=== PATIENT | male | born 1945 | race Caucasian/White ===

== ENCOUNTER 2023-11-01 21:18 | Outpatient (CLI) | payer MEDICARE, SELFPAY | END 2023-11-01 21:19 | disposition home or self-care (01) | LOC: AMB 11-02 10:13 | PROVIDERS: Visit Provider Family Medicine | DX: R41.82 Altered mental status, unspecified (principal) | CPT/HCPCS: A0425; A0427 ==

== ENCOUNTER 2023-11-01 22:04 | Emergency (ER) | payer MEDICARE, SELFPAY ==
[2023-11-01] VITALS (17 sets, daily range): BP systolic 101–141; BP diastolic 50–72; PULSE 31–42; RESP 18; TEMP 36.7; O2SAT 96–100
--- NOTE | 2023-11-01 22:09 | ED_ITS ---
HPI - General Adult General Time Seen by Provider: 22:09 <Genesis Travis MD - Last Filed: 11/02/23 00:42> Date Seen: 11/01/23 <Genesis Travis MD - Last Filed: 11/02/23 00:42> Chief complaint: Unspecified Complaint, Adult <Genesis Travis MD - Last Filed: 11/02/23 00:42> Stated complaint: Low heart rate <Genesis Travis MD - Last Filed: 11/02/23 00:42> Time Seen by Provider: 11/01/23 22:09 <Genesis Travis MD - Last Filed: 11/02/23 00:42> Source: patient, EMS and RN notes reviewed <Genesis Travis MD - Last Filed: 11/02/23 00:42> Mode of arrival: EMS <Genesis Travis MD - Last Filed: 11/02/23 00:42> Limitations: no limitations <Genesis Travis MD - Last Filed: 11/02/23 00:42> History of Present Illness HPI narrative: This 78-year-old male was brought over from [facility], EMS was called due to possible speech issues. Staff was noting that speech is off, last time known well is unknown. EMS found a normal negative stroke assessment but that his heart rate was in the 30s, initial blood pressure was systolic 130s. In route to our facility which is a bit very brief transfer, he had 1 episode where his speech seems slurred. It cleared and has been normal since. Patient is aware that they called the ambulance for speech issues. He denies any chest pain, is not short of breath. He states he has been well. He does note when he was wheeling himself around in a wheelchair earlier today that he felt a little bit more tired. He is not feeling symptoms of this low heart rate but is just lying there. He notes no speech issues, no headache, no visual changes. He denies any incoordination or abnormal motor changes in his arms or legs. He is a patient of [facility]. He states he has had a bypass surgery for his heart at [facility] in 2000. We do not have records on him, we have not seen him before. Current medications are acetaminophen, Tums, 81 mg aspirin, eye lubricating drops, duloxetine, Flomax, lisinopril, lithium, methimazole, multivitamin, sublingual nitroglycerin p.r.n., along the Pean, MiraLax, propranolol 60 mg extended release daily, Protonix, senna, trazodone, Xarelto Patient is noted to be DNR DNI. <Genesis Travis MD - Last Filed: 11/02/23 00:42> Related Data Allergies/adverse reactions: Allergies Allergy/AdvReac Type Severity Reaction Status Date / Time Penicillins AdvReac Verified 11/01/23 22:31 Sulfa (Sulfonamide AdvReac Verified 11/01/23 22:31 Antibiotics) <Genesis Travis MD - Last Filed: 11/02/23 00:42> Review of Systems Status of ROS: Reports: 6 or more systems reviewed and unremarkable except as noted in History and below <Genesis Travis MD - Last Filed: 11/02/23 00:42> [facility] Surgical History: Surgical History (Updated 11/01/23 @ 22:58 by Jaja Hamilton RN) S/P triple vessel bypass ?Z95.1 - Presence of aortocoronary bypass graft (ICD-10) <Genesis Travis MD - Last Filed: 11/02/23 00:42> Social History: Social History How often do you have a drink containing alcohol: never AUDIT-C Alcohol total score: 0 Non-prescribed substance use: denies use <Genesis Travis MD - Last Filed: 11/02/23 00:42> Exam Const: Vital Signs, click to edit/add: Vital Signs - 24 hr 11/01/23 22:10 11/01/23 22:12 11/01/23 22:13 Temperature Pulse Rate 39 L 38 L Pulse Rate [Pulse Oximeter] Respiratory Rate Blood Pressure 141/72 H Blood Pressure [Ri ght Upper Arm] Pulse Oximetry 98 99 99 Oxygen Delivery Me thod 11/01/23 22:15 11/01/23 22:20 11/01/23 22:29 Temperature 98.1 F Pulse Rate 39 L 39 L Pulse Rate [Pulse Oximeter] 31 L Respiratory Rate 18 Blood Pressure Blood Pressure [Ri ght Upper Arm] 138/62 Pulse Oximetry 100 99 96 Oxygen Delivery Me thod Room Air 11/01/23 22:30 11/01/23 22:32 11/01/23 22:45 Temperature Pulse Rate 38 L 38 L 38 L Pulse Rate [Pulse Oximeter] Respiratory Rate Blood Pressure 104/63 Blood Pressure [Ri ght Upper Arm] Pulse Oximetry 100 100 100 Oxygen Delivery Me thod 11/01/23 22:47 11/01/23 22:48 11/01/23 23:00 Temperature Pulse Rate 42 L 39 L 38 L Pulse Rate [Pulse Oximeter] Respiratory Rate Blood Pressure 106/60 Blood Pressure [Ri ght Upper Arm] Pulse Oximetry 100 100 99 Oxygen Delivery Me thod 11/01/23 23:03 11/01/23 23:15 11/01/23 23:19 Temperature Pulse Rate 36 L 37 L 38 L Pulse Rate [Pulse Oximeter] Respiratory Rate Blood Pressure 101/52 L 116/58 L Blood Pressure [Ri ght Upper Arm] Pulse Oximetry 100 99 100 Oxygen Delivery Me thod 11/01/23 23:39 11/01/23 23:47 11/02/23 00:03 Temperature Pulse Rate 42 L 37 L 34 L Pulse Rate [Pulse Oximeter] Respiratory Rate Blood Pressure 131/62 112/50 L 86/47 L Blood Pressure [Ri ght Upper Arm] Pulse Oximetry 100 100 100 Oxygen Delivery Me thod 11/02/23 00:08 11/02/23 00:18 11/02/23 00:32 Temperature Pulse Rate 34 L 34 L 41 L Pulse Rate [Pulse Oximeter] Respiratory Rate Blood Pressure 91/56 L 113/74 123/62 Blood Pressure [Ri ght Upper Arm] Pulse Oximetry 100 100 98 Oxygen Delivery Me thod 11/02/23 00:33 11/02/23 00:45 11/02/23 00:47 Temperature Pulse Rate 37 L 37 L 35 L Pulse Rate [Pulse Oximeter] Respiratory Rate Blood Pressure 85/51 L Blood Pressure [Ri ght Upper Arm] Pulse Oximetry 97 97 95 Oxygen Delivery Me thod 11/02/23 01:00 11/02/23 01:04 11/02/23 01:15 Temperature Pulse Rate 37 L 36 L 35 L Pulse Rate [Pulse Oximeter] Respiratory Rate Blood Pressure 94/48 L Blood Pressure [Ri ght Upper Arm] Pulse Oximetry 96 99 100 Oxygen Delivery Me thod 11/02/23 01:17 Temperature Pulse Rate 38 L Pulse Rate [Pulse Oximeter] Respiratory Rate Blood Pressure 117/46 L Blood Pressure [Ri ght Upper Arm] Pulse Oximetry 99 Oxygen Delivery Me thod Patient is slightly sweaty on his forehead and face but skin is warm, no rash. He is alert and conversive, answering questions appropriately, speech seems normal, symmetrical facial function, no visual field cuts grossly. Neck without any masses. Heart rate is slow I do not hear any murmurs, lungs at the axilla sound clear, do not hear any wheezing or crackles, he is not tachypneic. Abdomen is soft, no rebound or guarding. 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 Can lift each leg off the bed, no gross focal neurologic changes. He has hemosiderin staining of his lower extremities no significant gross edema of his lower extremities. <Genesis Travis MD - Last Filed: 11/02/23 00:42> Vital Signs, click to edit/add: Vital Signs - 24 hr 11/01/23 22:10 11/01/23 22:12 11/01/23 22:13 Temperature Pulse Rate 39 L 38 L Pulse Rate [Pulse Oximeter] Respiratory Rate Blood Pressure 141/72 H Blood Pressure [Ri ght Upper Arm] Pulse Oximetry 98 99 99 Oxygen Delivery Me thod 11/01/23 22:15 11/01/23 22:20 11/01/23 22:29 Temperature 98.1 F Pulse Rate 39 L 39 L Pulse Rate [Pulse Oximeter] 31 L Respiratory Rate 18 Blood Pressure Blood Pressure [Ri ght Upper Arm] 138/62 Pulse Oximetry 100 99 96 Oxygen Delivery Me thod Room Air 11/01/23 22:30 11/01/23 22:32 11/01/23 22:45 Temperature Pulse Rate 38 L 38 L 38 L Pulse Rate [Pulse Oximeter] Respiratory Rate Blood Pressure 104/63 Blood Pressure [Ri ght Upper Arm] Pulse Oximetry 100 100 100 Oxygen Delivery Me thod 11/01/23 22:47 11/01/23 22:48 11/01/23 23:00 Temperature Pulse Rate 42 L 39 L 38 L Pulse Rate [Pulse Oximeter] Respiratory Rate Blood Pressure 106/60 Blood Pressure [Ri ght Upper Arm] Pulse Oximetry 100 100 99 Oxygen Delivery Me thod 11/01/23 23:03 11/01/23 23:15 11/01/23 23:19 Temperature Pulse Rate 36 L 37 L 38 L Pulse Rate [Pulse Oximeter] Respiratory Rate Blood Pressure 101/52 L 116/58 L Blood Pressure [Ri ght Upper Arm] Pulse Oximetry 100 99 100 Oxygen Delivery Me thod 11/01/23 23:39 11/01/23 23:47 11/02/23 00:03 Temperature Pulse Rate 42 L 37 L 34 L Pulse Rate [Pulse Oximeter] Respiratory Rate Blood Pressure 131/62 112/50 L 86/47 L Blood Pressure [Ri ght Upper Arm] Pulse Oximetry 100 100 100 Oxygen Delivery Me thod 11/02/23 00:08 11/02/23 00:18 11/02/23 00:32 Temperature Pulse Rate 34 L 34 L 41 L Pulse Rate [Pulse Oximeter] Respiratory Rate Blood Pressure 91/56 L 113/74 123/62 Blood Pressure [Ri ght Upper Arm] Pulse Oximetry 100 100 98 Oxygen Delivery Me thod 11/02/23 00:33 11/02/23 00:45 11/02/23 00:47 Temperature Pulse Rate 37 L 37 L 35 L Pulse Rate [Pulse Oximeter] Respiratory Rate Blood Pressure 85/51 L Blood Pressure [Ri ght Upper Arm] Pulse Oximetry 97 97 95 Oxygen Delivery Me thod 11/02/23 01:00 11/02/23 01:04 11/02/23 01:15 Temperature Pulse Rate 37 L 36 L 35 L Pulse Rate [Pulse Oximeter] Respiratory Rate Blood Pressure 94/48 L Blood Pressure [Ri ght Upper Arm] Pulse Oximetry 96 99 100 Oxygen Delivery Me thod 11/02/23 01:17 Temperature Pulse Rate 38 L Pulse Rate [Pulse Oximeter] Respiratory Rate Blood Pressure 117/46 L Blood Pressure [Ri ght Upper Arm] Pulse Oximetry 99 Oxygen Delivery Me thod <Rajiv Benavidez DO - Last Filed: 11/02/23 01:54> Documenting provider has reviewed patient's vital signs: yes <Genesis Travis MD - Last Filed: 11/02/23 00:42> Course Course ED Course: We worked try to find a pulse oximeter, peripheral was not working, did do the forehead pulse oximeter, blood pressure after arrival was systolic 141, EKG was being obtained, nursing staff was working to get cardiac monitoring and IV site established. We did place pacer pads on preemptively. His GCS is still appropriate, he is not hypotensive, will look to do a portable chest x-ray and obtain head CT if we can, patient is not stable to leave the department at this time and I do have strong suspicion that the bradycardia may have caused some cerebral hypoperfusion. I have looked at his medications, patient states this staff provide medicines for him. He does not give his own medicines. Will attempt to call [facility] as he is going to need to see Cardiology and will likely need a pacemaker. I doubt that the 60 mg of propranolol is enough to have caused this level bradycardia. Did discuss with his daughter and patient about transfer for cardiology consultation and very likely pacemaker. Patient would certainly consider this, he understands if he does nothing that this is not going to give him good quality of life, may cause limitations and certainly has significant potential to shorten his life. I highly doubt that he is going to tolerate a idioventricular rhythm in the 30s for any length. They understand that I am looking for potential correctable etiologies but it is possible that this is just stemming from aberrant see in his electrical conduction system and very well may require a pacemaker. I do think he may need a temporary 1, will need to talk to Cardiology further about him. Nursing staff did ascertain that the patient did have COVID a few weeks ago, maybe even 3 weeks ago. Thus, did do a COVID antigen just to ensure he is not shedding. <Genesis Travis MD - Last Filed: 11/02/23 00:42> Reevaluation(s) Time of Reevaluation #1: 00:18 <Genesis Travis MD - Last Filed: 11/02/23 00:42> Reevaluation #1: Nursing staff had 2 systolic blood pressures of 80, 1 of 75, most recent 91. Patient was initially sleeping, nursing staff did reorient the blood pressure cuff. Patient was awake with the 90 systolic blood pressure. He is really not giving me any symptoms of lightheadedness but is just lying flat in the bed. He is not having any chest pain or shortness of breath. We will contact Cardiology back to let them know about the new blood pressure levels. His chest x-ray already has some changes consistent with fluid overload, do not think that IV fluids are going to be beneficial here, may need to consider pressors if symptoms of low blood pressure continue or if patient actually becomes symptomatic. <Genesis Travis MD - Last Filed: 11/02/23 00:42> Consultations Consultation #1: 10:19 p.m.: Did talk to [facility], they state all of their facilities are on diversion, [place] is on med surge in PCU, [place] [facility] med surge in PCU. We did then call [facility] and they have no immediate beds, will talk to Cardiology and they are going to look again. [facility], [facility], [place] have no current beds. I then did call back down to [facility] at 10:49 p.m., reviewed with them that this is their patient, he has had all of his care there, I am unable transfer to the [facility] at this time and in requesting that they accept this patient. 11:11pm: Spoke with psychiatric attendant Dr. Tello. He states that patient has only had recent care there from psychiatry. Reviewed with him that the patient had his CABG there about 2000 or so, states that he only gets care there. In the chart, he states the patient has pulse rate is usually low, in the 40s and 50s. He states he is usually in atrial fibrillation and that it does look regular. I reviewed with him again that my EKG was not showing atrial fibrillation but a wide complex rhythm that is concerning for an idioventricular escape rhythm. He does have the EKG there. He and I reviewed most recent BP of systolic 106, he is wondering if something else is going on with the patient rather than underlying cardiac issue. He wondered about the lower blood pressure and possible stroke. Reviewed with him that stroke typically is not associated with a lowering of blood pressure, more hypertensive. My assessment of this patient is not acute stroke but concern of hypoperfusion from a low heart rate. They are not accepting this patient. I will be subsequently calling [facility] back. 11:19 p.m.: Did speak with the triage center, they will page Cardiology. At 11:53 p.m., did speak with Dr. Fisher on-call for Cardiology. He agreed with my assessment of the EKG that this was an idioventricular escape rhythm. We did review patient's medications, agrees that 60 mg of propranolol is not solely responsible. I see no atrial fibrillation on the monitor while he is here, just the bradycardic rhythm in the 30s. Did subsequently talk to Dr. Fisher again at 12:23 a.m. given patient's blood pressures had dropped to systolic 80s, 75, systolic 91. Patient was alert and conversive with me with a systolic blood pressure of 91. Dr. Fisher is going to have us just watch the patient, do nothing unless patient is symptomatic. <Genesis Travis MD - Last Filed: 11/02/23 00:42> Vital Signs Vital signs: Initial Vital Signs Pulse Oximetry 98 11/01/23 22:10 Vital Signs Pulse Oximetry 98 11/01/23 22:10 Temperature 98.1 F 11/01/23 22:29 Pulse Rate 38 L 11/02/23 01:17 Respiratory Rate 18 11/01/23 22:29 Blood Pressure 117/46 L 11/02/23 01:17 Pulse Oximetry 99 11/02/23 01:17 Oxygen Delivery Method Room Air 11/01/23 22:29 <Genesis Travis MD - Last Filed: 11/02/23 00:42> Initial Vital Signs Pulse Oximetry 98 11/01/23 22:10 Vital Signs Pulse Oximetry 98 11/01/23 22:10 Temperature 98.1 F 11/01/23 22:29 Pulse Rate 38 L 11/02/23 01:17 Respiratory Rate 18 11/01/23 22:29 Blood Pressure 117/46 L 11/02/23 01:17 Pulse Oximetry 99 11/02/23 01:17 Oxygen Delivery Method Room Air 11/01/23 22:29 <Rajiv Benavidez DO - Last Filed: 11/02/23 01:54> Medical Decision Making MDM Narrative Medical decision making narrative: Patient was signed out to me pending transfer. We were able to get him transferred to [place]. No other significant events occurred during my shift. <Rajiv Benavidez DO - Last Filed: 11/02/23 01:54> Lab Data Lab results reviewed: Yes I reviewed the patient's lab results <Genesis Travis MD - Last Filed: 11/02/23 00:42> Labs: Lab Results 11/01/23 11/01/23 Range/Units 22:40 22:50 WBC 7.87 (4.50-11.00) K/uL RBC 3.76 L (4.30-5.90) m/uL Hgb 12.7 L (13.5-17.5) gm/dL Hct 39.3 (37.0-53.0) % MCV 105 H (80-100) fL MCH 34 (26-34) pg MCHC 32 (32-36) gm/dL RDW Coeff of Juan Carlos 14.8 (11.5-15.5) % Plt Count 133 L (140-440) K/uL Neut % (Auto) 68.7 (42.0-72.0) % Lymph % (Auto) 19.4 L (20-44) % [place] % (Auto) 8.4 (0.0-11.0) % Eos % (Auto) 2.3 (0.0-7.0) % Baso % (Auto) 0.4 (0.0-3.0) % Neut # (Auto) 5.41 (1.7-7.0) K/uL Lymph # (Auto) 1.50 (0.90-2.90) K/uL [place] # (Auto) 0.70 (0.00-0.90) K/UL Eos # (Auto) 0.18 (0.00-0.50) K/uL Baso # (Auto) 0.03 (0.00-0.30) K/uL Abs Immat Gran (auto) 0.06 (0.00-0.30) K/uL Imm/Tot Granulo (auto) 0.8 % VBG pH 7.389 (7.32-7.43) VBG pCO2 49 (40-50) mmHG VBG pO2 < 30.1 (25-47) mmHG VBG HCO3 29 H (21-28) mmol/L Sodium 139 (135-149) mmol/L Potassium 4.2 (3.6-5.1) mmol/L Chloride 107 (96-114) mmol/L Carbon Dioxide 29 (20-32) mmol/L Anion Gap 3 L (7-15) mEq/L BUN 28 (7-30) mg/dL Creatinine 0.7 (0.5-1.5) mg/dL Estimated GFR 93 ml/min Glucose 113 (60-115) mg/dL Lactate 1.7 (0.5-1.9) mmol/L Calcium 9.2 (8.4-10.6) mg/dL Magnesium 2.3 (1.5-2.6) mg/dL Total Bilirubin 1.0 (0.1-1.5) mg/dL AST 31 (12-35) U/L ALT 21 (4-50) U/L Alkaline Phosphatase 72 (40-150) U/L Troponin I 0.03 (0.01-0.04) ng/mL NT-Pro-B Natriuret Pep 618 pg/mL Total Protein 7.2 (6.0-8.3) g/dL Albumin 4.0 (3.3-5.0) g/dL TSH 5.180 H (0.270-4.200) uIU/mL Free T4 1.16 (0.70-1.85) ng/dL SARS-CoV-2 Ag (Rapid) Negative (Negative) POC Troponin I 0.00 L (0.01-0.04) ng/ml <Genesis Travis MD - Last Filed: 11/02/23 00:42> Lab Results 11/01/23 11/01/23 Range/Units 22:40 22:50 WBC 7.87 (4.50-11.00) K/uL RBC 3.76 L (4.30-5.90) m/uL Hgb 12.7 L (13.5-17.5) gm/dL Hct 39.3 (37.0-53.0) % MCV 105 H (80-100) fL MCH 34 (26-34) pg MCHC 32 (32-36) gm/dL RDW Coeff of Juan Carlos 14.8 (11.5-15.5) % Plt Count 133 L (140-440) K/uL Neut % (Auto) 68.7 (42.0-72.0) % Lymph % (Auto) 19.4 L (20-44) % [place] % (Auto) 8.4 (0.0-11.0) % Eos % (Auto) 2.3 (0.0-7.0) % Baso % (Auto) 0.4 (0.0-3.0) % Neut # (Auto) 5.41 (1.7-7.0) K/uL Lymph # (Auto) 1.50 (0.90-2.90) K/uL [place] # (Auto) 0.70 (0.00-0.90) K/UL Eos # (Auto) 0.18 (0.00-0.50) K/uL Baso # (Auto) 0.03 (0.00-0.30) K/uL Abs Immat Gran (auto) 0.06 (0.00-0.30) K/uL Imm/Tot Granulo (auto) 0.8 % VBG pH 7.389 (7.32-7.43) VBG pCO2 49 (40-50) mmHG VBG pO2 < 30.1 (25-47) mmHG VBG HCO3 29 H (21-28) mmol/L Sodium 139 (135-149) mmol/L Potassium 4.2 (3.6-5.1) mmol/L Chloride 107 (96-114) mmol/L Carbon Dioxide 29 (20-32) mmol/L Anion Gap 3 L (7-15) mEq/L BUN 28 (7-30) mg/dL Creatinine 0.7 (0.5-1.5) mg/dL Estimated GFR 93 ml/min Glucose 113 (60-115) mg/dL Lactate 1.7 (0.5-1.9) mmol/L Calcium 9.2 (8.4-10.6) mg/dL Magnesium 2.3 (1.5-2.6) mg/dL Total Bilirubin 1.0 (0.1-1.5) mg/dL AST 31 (12-35) U/L ALT 21 (4-50) U/L Alkaline Phosphatase 72 (40-150) U/L Troponin I 0.03 (0.01-0.04) ng/mL NT-Pro-B Natriuret Pep 618 pg/mL Total Protein 7.2 (6.0-8.3) g/dL Albumin 4.0 (3.3-5.0) g/dL TSH 5.180 H (0.270-4.200) uIU/mL Free T4 1.16 (0.70-1.85) ng/dL SARS-CoV-2 Ag (Rapid) Negative (Negative) POC Troponin I 0.00 L (0.01-0.04) ng/ml <Rajiv Benavidez DO - Last Filed: 11/02/23 01:54> Imaging Data Chest x-ray: Attestation: I have reviewed the pertinent imaging results. <Genesis Bull MD - Last Filed: 11/02/23 00:42> My impression: I do believe that he has some mild pulmonary edema on this chest x- ray. <Genesis Travis MD - Last Filed: 11/02/23 00:42> Radiologist's impression: Patient: RAY LOVE Facility:?[facility] Patient ID:?[id number] Site Patient ID:?[id number]. Site :?1945 Study:?XRay Chest AP PORTABLE-11/01/2023 11:05:00 PM Ordering Physician:Kevin Saucedo Final Report: INDICATION: Bradycardia. TECHNIQUE: Chest 1 view(s) COMPARISON: None. FINDINGS: Post median sternotomy. Cardiomegaly. Pulmonary vasculature is normal. Mild hazy central interstitial opacities. No focal consolidation. No layering pleural effusion. No pneumothorax. Defibrillator pad projects over the left chest wall. IMPRESSION: 1. Mild hazy central interstitial opacities, may reflect mild pulmonary edema. 2. Cardiomegaly. Dictated by Chiquita Nichols MD @ 11/01/2023 11:26:09 PM (Electronic Signature) <Genesis Travis MD - Last Filed: 11/02/23 00:42> CT scan - head: Attestation: I have reviewed the pertinent imaging results. <Genesis Bull MD - Last Filed: 11/02/23 00:42> Radiologist's impression: Patient: RAY LOVE Facility:?[facility] Patient ID:?[id number] Site Patient ID:?[id number]. Site :?1945 Study:?CT Head without contrast-11/01/2023 11:45:14 PM Ordering Physician:Kevin Saucedo Final Report: INDICATION: Dysarthric speech. TECHNIQUE: CT head without contrast. COMPARISON: None. FINDINGS: CSF spaces: Proportionate prominence of the ventricles and sulci, reflecting mild generalized cerebral volume loss. Brain parenchyma: The awtts-white differentiation is maintained. Patchy white matter low attenuation changes, nonspecific but likely reflecting chronic small vessel ischemic disease. No sign of mass, hemorrhage, or midline shift. Atherosclerotic calcifications of the cavernous carotids and carotid siphons. Skull base and calvarium: The visualized paranasal sinuses and mastoid air cells demonstrate no acute or significant findings. Bilateral lens extraction. No skull fractures. IMPRESSION: No acute intracranial abnormality. Please note that all CT scans at this facility use dose modulation, iterative reconstruction, and/or weight-based dosing when appropriate to reduce radiation dose to as low as reasonably achievable. Dictated by Justin Peng MD @ 11/01/2023 11:56:08 PM (Electronic Signature) <Genesis Travis MD - Last Filed: 11/02/23 00:42> ECG Data Attestation: I personally reviewed and interpreted this ECG as follows: (Idioventricular escape rhythm, rate 37 beats per minute. Wide complex, right bundle branch block, no definite ischemic change noted.) <Genesis Bull MD - Last Filed: 11/02/23 00:42> Prior ECG tracings: not available for review <Genesis Travis MD - Last Filed: 11/02/23 00:42> Discharge Plan Discharge Clinical Impression: Bradycardia <Genesis Travis MD - Last Filed: 11/02/23 00:42> Patient Disposition: [facility] <Genesis Travis MD - Last Filed: 11/02/23 00:42> Discharge Location: [facility] <Genesis Travis MD - Last Filed: 11/02/23 00:42> Condition: Unchanged <Genesis Travis MD - Last Filed: 11/02/23 00:42> Stand Alone Forms: [facility] Info Inst[facility] <Genesis Travis MD - Last Filed: 11/02/23 00:42>
--- NOTE | 2023-11-01 22:10 | XR_ITS ---
Patient: RAY LOVE Facility:?[facility] Patient ID:?[id number] Site Patient ID:?[id number]. Site :?1945 Study:?XRay-Chest AP PORTABLE-11/01/2023 11:05:00 PM Ordering Physician:Kevin Saucedo Final Report: INDICATION: Bradycardia. TECHNIQUE: Chest 1 view(s) COMPARISON: None. FINDINGS: Post median sternotomy. Cardiomegaly. Pulmonary vasculature is normal. Mild hazy central interstitial opacities. No focal consolidation. No layering pleural effusion. No pneumothorax. Defibrillator pad projects over the left chest wall. IMPRESSION: 1. Mild hazy central interstitial opacities, may reflect mild pulmonary edema. 2. Cardiomegaly. Dictated by Chiquita Nichols MD @ 11/01/2023 11:26:09 PM Signed by:?Chiquita Nichols MD @11/01/2023 11:26:09 PM (Electronic Signature)
--- NOTE | 2023-11-01 22:11 | CT_ITS ---
Patient: RAY LOVE Facility:?[facility] Patient ID:?[id number] Site Patient ID:?[id number]. Site :?1945 Study:?CT-Head without contrast-11/01/2023 11:45:14 PM Ordering Physician:Kevin Saucedo Final Report: INDICATION: Dysarthric speech. TECHNIQUE: CT head without contrast. COMPARISON: None. FINDINGS: CSF spaces: Proportionate prominence of the ventricles and sulci, reflecting mild generalized cerebral volume loss. Brain parenchyma: The watts-white differentiation is maintained. Patchy white matter low attenuation changes, nonspecific but likely reflecting chronic small vessel ischemic disease. No sign of mass, hemorrhage, or midline shift. Atherosclerotic calcifications of the cavernous carotids and carotid siphons. Skull base and calvarium: The visualized paranasal sinuses and mastoid air cells demonstrate no acute or significant findings. Bilateral lens extraction. No skull fractures. IMPRESSION: No acute intracranial abnormality. Please note that all CT scans at this facility use dose modulation, iterative reconstruction, and/or weight-based dosing when appropriate to reduce radiation dose to as low as reasonably achievable. Dictated by Justin Peng MD @ 11/01/2023 11:56:08 PM Signed by:?Justin Peng MD @11/01/2023 11:56:08 PM (Electronic Signature)
[2023-11-01 22:52] LABS: HCO3 VBG 29 mmol/L (21-28); PCO2 VBG 49 mmHG (40-50); PO2 VBG < 30.1 mmHG (25-47); pH VBG 7.389 (7.32-7.43)
[2023-11-01 22:53] LABS: Lactate* 1.7 mmol/L (0.5-1.9)
[2023-11-01 22:56] LABS: Basophils Absolute Auto 0.03 K/uL (0.00-0.30); Basophils Percent Auto 0.4 % (0.0-3.0); Eosinophils Absolute Auto 0.18 K/uL (0.00-0.50); Eosinophils Percent Auto 2.3 % (0.0-7.0); Hematocrit 39.3 % (37.0-53.0); Hemoglobin* 12.7 gm/dL (13.5-17.5); Immature Granulocytes Abs Auto 0.06 K/uL (0.00-0.30); Immature Granulocytes Pct Auto 0.8 %; Lymphocytes Percent Auto 19.4 % (20-44); Mean Corpuscular HGB Conc 32 gm/dL (32-36); Mean Corpuscular Hemoglobin 34 pg (26-34); Mean Corpuscular Volume 105 fL (80-100); Monocytes Percent Auto 8.4 % (0.0-11.0); Neutrophils Absolute Auto 5.41 K/uL (1.7-7.0); Neutrophils Percent Auto 68.7 % (42.0-72.0); Platelet Count* 133 K/uL (140-440); RDW Coefficient of Variation % 14.8 % (11.5-15.5); Red Blood Count 3.76 m/uL (4.30-5.90); White Blood Count* 7.87 K/uL (4.50-11.00)
[2023-11-01 22:58] LABS: Slide Review Reflex No
[2023-11-01 23:07] LABS: Chloride* 107 mmol/L (96-114)
[2023-11-01 23:08] LABS: Potassium* 4.2 mmol/L (3.6-5.1); Sodium* 139 mmol/L (135-149)
[2023-11-01 23:10] LABS: Anion Gap 3 mEq/L (7-15); Aspartate Amino Transferase* 31 U/L (12-35); Blood Urea Nitrogen* 28 mg/dL (7-30); Carbon Dioxide* 29 mmol/L (20-32); Creatinine* 0.7 mg/dL (0.5-1.5); Estimated Glomerular Filt Rate 93 ml/min; Total Protein* 7.2 g/dL (6.0-8.3)
[2023-11-01 23:11] LABS: Alanine Aminotransferase* 21 U/L (4-50); Alkaline Phosphatase* 72 U/L (40-150); Calcium* 9.2 mg/dL (8.4-10.6); Glucose* 113 mg/dL (60-115); Magnesium* 2.3 mg/dL (1.5-2.6)
[2023-11-01 23:17] LABS: SARS Antigen* Negative (Negative)
[2023-11-01 23:23] LABS: Troponin I* 0.03 ng/mL (0.01-0.04)
[2023-11-01 23:27] LABS: NT Pro B Type NatriureticPept* 618 pg/mL
[2023-11-02] VITALS (11 sets, daily range): BP systolic 85–123; BP diastolic 46–74; PULSE 34–41; O2SAT 95–100
[2023-11-02 00:06] LABS: Free T4 Free Thyroxine* 1.16 ng/dL (0.70-1.85)
--- NOTE | 2023-11-02 00:11 | PC.NURSE ---
Dr Kunz at
== END 2023-11-02 01:47 | disposition short-term general hospital (02) ==
PROVIDERS: Family Medicine; Emergency Provider Student in an Organized Health Care Education/Training Program
DX: R00.1 Bradycardia, unspecified (principal)
CPT/HCPCS: 36415; 70450; 71045; 80053; 82803; 83605; 83735; 83880; 84439; 84443; 84484; 85025; 87426; 87631; 93005; 94761; 99284; 99285; 99291

== ENCOUNTER 2023-11-02 01:38 | Outpatient (CLI) | payer MEDICARE, SELFPAY | END 2023-11-02 01:39 | disposition home or self-care (01) | LOC: AMB 11-03 11:39 | PROVIDERS: Visit Provider Student in an Organized Health Care Education/Training Program | DX: R00.1 Bradycardia, unspecified (principal) | CPT/HCPCS: A0425; A0427 ==

== ENCOUNTER 2024-12-27 13:09 | Outpatient (REF) | payer MEDICARE, SELFPAY ==
[2024-12-27 15:08] LABS: Appearance Urine Clear (Clear); Bilirubin Urine Negative (Negative); Blood Urine Negative (Negative); Color Urine Yellow (Yellow); Glucose Urine Negative (Negative); Ketones Urine Negative (Negative); Leukocyte Esterase Urine Trace (Negative); Nitrite Urine Negative (Negative); Protein Urine Negative (Negative); Urobilinogen Urine 0.2 (0.2-1.0)
[2024-12-27 15:16] LABS: RBC Urine 0-2 (0-2)
[2024-12-27 15:17] LABS: Bacteria Urine Few; Mucus Urine Many; Squamous Epithelial Cell Urine Few (None-Few)
== END 2024-12-27 13:10 | disposition home or self-care (01) ==
LOC: NPINS 13:09
PROVIDERS: Visit Provider Nurse Practitioner Gerontology
DX: R41.0 Disorientation, unspecified (principal); I10 Essential (primary) hypertension; E05.00 Thyrotoxicosis with diffuse goiter without thyrotoxic crisis or storm; I25.10 Atherosclerotic heart disease of native coronary artery without angina pectoris; E05.90 Thyrotoxicosis, unspecified without thyrotoxic crisis or storm
CPT/HCPCS: 81001; 87086

== ENCOUNTER 2025-02-14 15:15 | Outpatient (REF) | payer MEDICARE, SELFPAY ==
--- OUTSIDE RECORDS SUMMARY | 2025-02-14 15:21 | XMS_ITS | Clinical Summary ---
Author Organization [facility] Address [facility] [place] [address] Care Team Providers Care Hand Shaper Name Role Phone Chandana Antonio MD Primary Care Provi farrah Allergies Active Allergy Reactions Criticality Noted Date Comments Penicillins *Unknown 11/02/2023 Adverse reaction Sulfa (Sulfonamide Antibiotics) *Unknown 10/15 Adverse reaction Medications aspirin (ECOTRIN) 81 mg enteric coated tablet Take 81 mg by mouth once daily with a meal. Active lithium carbonate (LITHOBID) 300 mg Controlled-Relea se tablet Take 300 mg by mouth at bedtime. Active pantoprazole (PROTONIX) 40 mg delayed-release tablet Take 40 mg by mouth once daily. Active methIMAzole (TAPAZOLE) 5 mg tablet Take 2.5 mg by mouth once daily. Active tamsulosin (FLOMAX) 0.4 mg capsule Take 0.4 mg by mouth once daily after a meal. Active DULoxetine (CYMBALTA) 60 mg Delayed-release capsule Take 60 mg by mouth every morning. Active traZODone (DESYREL) 50 mg tablet Take 50 mg by mouth at bedtime if needed. Active lisinopriL (PRINIVIL; ZESTRIL) 5 mg tablet Take 5 mg by mouth once daily. Active atorvastatin (LIPITOR) 20 mg tablet Take 20 mg by mouth at bedtime. Active propranolol ER (INDERAL LA) 60 mg Cs24 Sustained-Releas e capsuleIndicatio ns:essential tremor Take 60 mg by mouth every morning. Active OLANzapine (ZYPREXA) 5 mg tablet Take 5 mg by mouth at bedtime if needed for Agitation (anxiety). Active OLANzapine (ZYPREXA) 5 mg tablet Take 2.5 mg by mouth every 12 hours if needed for Agitation (anxiety, negative thoughts). Active calcium carbonate (TUMS) 200 mg calcium (500 mg) chewable tablet Chew 500 mg by mouth every 4 hours if needed for Heartburn. Active carboxymethylcel lulose 0.5% 0.5 % drop ophthalmic dropsIndications :dry eye Place 1 Drop into both eyes every 6 hours if needed for Dry Eyes. Active geriatric multivitamin-iro n-minerals (GERITOL; CENTRUM SILVER) tablet Take 1 Tablet by mouth once daily. Active nitroglycerin (NITROSTAT) 0.[address] 0.4 mg under the tongue every 5 minutes if needed for Chest Pain. Up to 3 tablets in 15 minutes. Active polyethylene glycoL (Miralax) 17 gram/scoop powder Mix 17 g in liquid then take by mouth once daily. Active sennosides-docus ate (SENOKOT S) (8.6-50 mg) tablet Take 1 Tablet by mouth every 12 hours if needed for Constipation. Active acetaminophen (TYLENOL EXTRA STRGTH) 500 mg tabletIndication s:Pain Take 2 Tablets (1,000 mg) by mouth every 6 hours if needed for Pain or Headache. Max acetaminophen dose: 4000mg in 24 hrs. 11/10/19 24 Active furosemide (LASIX) 20 mg tabletIndication s:Leg edema Take 1 Tablet (20 mg) by mouth every morning. 11/16/19 24 Active rivaroxaban (Xarelto) 20 mg tabletIndication s:Chronic atrial fibrillation (HC) Take 1 Tablet (20 mg) by mouth once daily with evening meal. 11/16/19 24 Active Active Problems Problem Noted Date Diagnosed Date Complete heart block 11/02/2023 Chronic atrial fibrillation 11/02/2023 Hyperthyroidism 11/02/2023 Hx of CABG 11/02/2023 Mood disorder 11/02/2023 Anxiety 11/02/2023 Sleep disturbance 11/02/2023 Hyperlipidemia 11/02/2023 Hypertension 11/02/2023 Tremor 11/02/2023 Macrocytic anemia 11/02/2023 BPH (benign prostatic hyperplasia) 11/02/2023 GERD (gastroesophageal reflux disease) Macrocytic anemia 11/02/2023 Idioventricular rhythm 11/02/2023 Slurred speech 11/02/2023 Encounters Date Type Department Care Team Description 12/26/2024 Lab Requisition [facility] [phone] Eden Lake MD from Last 3 Months Social History Tobacco Use Types Packs/Day Years Used Date Smoking Tobacco: Never Passive Smoke Exposure: Past Smokeless Tobacco: Never Tobacco Cessation:Counseling Given: Not Answered Alcohol Use Standard Drinks/Week Comments Not Currently 0 (1 standard drink = 0.6 oz pur e alcohol) Social Connections Answer Date Recorded Do you often feel lonely or isolated from those around you? 0 11/05/2023 Financial Resource Strain Answer Date R ecorded Difficulty of Paying Living Expenses 3 11/05/2023 Difficulty of Paying Living Expenses Not on file 11/05/2023 Food Insecurity Answer Date Recorded Do you worry your food will run out before you are able to buy more? 1 11/05/2023 Transportation Needs Answer Date Record ed Does lack of transportation keep you from medica l appointments? 1 11/05/2023 Does lack of transportation keep you from work, meetings or getting things that you need? 1 11/05/2023 Housing Stability Answer Date Recorded What is your housing situation today? 1 11/05/2023 Interpersonal Safety Answer Date Record ed Are you being hit, kicked, p ushed or yelled at (see row info)? No 11/05/2023 Interpersonal Safety Abuse 12 - 18 Not on file 11/05/2023 Interpersonal Safety Ambulatory Vulnerability No t on file 11/05/2023 Utilities Answer Date Recorded Do you have trouble paying f or utilities (for example, heat, electricity, water, phone)? 1 11/05/2023 Sex and Gender Information Value Date Recorded Sex Assigned at Not on file Legal Sex Male 11:00 PM CDT Gender Identity Not on file Sexual Orientation Not on file Obstetrics History Last Filed Vital Signs Vital Sign Reading Time Taken Comments Blood Pressure 149/76 11/16/2023 9:12 AM CDT Pulse 52 11/16/2023 9:12 AM CDT Temperature 36.7 C (98.1 F) 11/15/2023 9:43 PM CDT Respiratory Rate 18 11/16/2023 9:12 AM CDT Oxygen Saturation 95% 11/16/2023 9:12 AM CDT Inhaled Oxygen Concentration - - Weight 87.6 kg (193 lb 2 oz) 11/15/2023 6:00 AM CDT Height 180.3 cm (5' 11) 11/02/2023 9:43 AM CDT Body Mass Index 26.94 11/02/2023 9:43 AM CDT Plan of Treatment Health Maintenance Due Date Last Done Comments Tetanus booster 1954 Depression screening for age 12+ 1955 BMI (ht and wt on same day) for age 18+ 1961 Pneumococcal series for age 50+ (1 of 2 - PCV) 1962 Zoster (shingles) series for age 50+ (1 of 2) 1993 RSV vaccine for adults or (1 - 1-dose 75+ series) 2018 COVID-19 vaccine series ( season) 2024 01/27/2023, 05/02/2022, 10/10/2021, Additional history exists Influenza Vaccine (#1) 2025 Hepatitis B series for 19+ Aged Out N o longer eligible based on patient's age to complete this topic Procedures Procedure Name Priority Date/Time Associated Diagnosis Comments HEPATIC FUNCTION PANEL Routine 12/27/2024 8:50 AM CDT Essential (primary) hypertension Thyrotoxicosis with diffuse goiter without thyrotoxic crisis or storm TSH Routine 12/27/2024 8:50 AM CDT Essential (primary) hypertension Thyrotoxicosis with diffuse goiter without thyrotoxic crisis or storm T4,FREE Routine 12/27/2024 8:50 AM CDT Essential (primary) hypertension Thyrotoxicosis with diffuse goiter without thyrotoxic crisis or storm BASIC METABOLIC PANEL Routine 12/27/2024 8:50 AM CDT Essential (primary) hypertension Thyrotoxicosis with diffuse goiter without thyrotoxic crisis or storm CBC W PLT NO DIFF Routine 12/27/2024 8:5 0 AM CDT Essential (primary) hypertension Thyrotoxicosis with diffuse goiter without thyrotoxic crisis or storm from Last 3 Months Results * TSH (12/27/2024 8:50 AM CDT) TSH 2.98 0.27 - 4.20 uIU/mL 12/27/2024 10:02 AM T [facility] Blood BLOOD SPECIMEN / Unknown Butterfly / Unknown 12/27/2024 8:50 AM CDT 12/27/2024 9:27 AM CDT [facility] - 12/27/2024 10:02 AM CDT In Adults, TSH values between 5.00 and 10.00 uIU/ml do not necessarily indicate the presence of Hypothyroidism. Correlation with clinical findings such as presence of goiter and/or Thyroperoxidase (TPO) Antibody may be helpful. For more information please refer to ELLY 2004; 291: 228-238. us Eden Lake MD CHEMISTRY Final Re sult [facility] [address] [place] [address] * (ABNORMAL) CBC W PLT NO DIFF (12/27/2024 8:50 AM CDT) WHITE BLOOD COUNT 7.1 4.5 - 11.0 thou/cu mm 12/27/2024 9:42 AM [facility] RED BLOOD COUNT 3.80(L) 4.30 - 5.90 mil/cu mm 12/27/2024 9:42 AM [facility] HEMOGLOBIN 13.8 13.5 - 17.5 g/dL 12/27/2024 9:42 AM [facility] HEMATOCRIT 40.1 37.0 - 53.0 % 12/27/2024 9:42 AM [facility] MCV 106(H) 80 - 100 fL 12/27/2024 9:42 AM [facility] MCH 36.3(H) 26.0 - 34.0 pg 12/27/2024 9:42 AM [facility] MCHC 34.4 32.0 - 36.0 g/dL 12/27/2024 9:42 AM CDT [facility] RDW 12.9 11.5 - 15.5 % 12/27/2024 9:42 AM CDT [facility] PLATELET COUNT 153 140 - 440 thou/cu mm 12/27/2024 9:42 AM CDT [facility] MPV 9.9 6.5 - 11.0 fL 12/27/2024 9:42 AM CDT [facility] Blood BLOOD SPECIMEN / Unknown Butterfly / Unknown 12/27/2024 8:50 AM CDT 12/27/2024 9:27 AM CDT us Eden Lake MD HEMATOLOGY Final Re sult [facility] [address] [place] [address] * T4,FREE (12/27/2024 8:50 AM CDT) T4,FREE 1.23 0.93 - 1.70 ng/dL 12/27/2024 11:28 PM CDT [facility] Blood BLOOD SPECIMEN / Unknown Butterfly / Unknown 12/27/2024 8:50 AM CDT 12/27/2024 9:27 AM CDT us [place] MD CHEMISTRY Final Re sult [facility] [address] [place] [id number] * HEPATIC FUNCTION PANEL (12/27/2024 8:50 AM CDT) ALBUMIN 4.3 4.0 - 4.9 g/dL 12/27/2024 10:02 AM CDT [facility] PROTEIN,TOTAL 6.6 6.0 - 8.0 g/dL 12/27/2024 10:02 AM CDT [facility] BILIRUBIN,TOTAL 0.4 0.0 - 1.2 mg/dL 12/27/2024 10:02 AM [facility] BILIRUBIN,DIRECT 0.2 0.0 - 0.2 mg/dL 12/27/2024 10:02 AM [facility] BILIRUBIN,INDIRE CT 0.2 0.2 - 0.8 mg/dL 12/27/2024 10:02 AM [facility] ALK PHOSPHATASE 86 40 - 129 IU/L 12/27/2024 10:02 AM [facility] ALT (SGPT) 17 10 - 50 IU/L 12/27/2024 10:02 AM [facility] AST (SGOT) 21 10 - 50 IU/L 12/27/2024 10:02 AM [facility] Blood BLOOD SPECIMEN / Unknown Butterfly / Unknown 12/27/2024 8:50 AM CDT 12/27/2024 9:27 AM T us [place] Lake MD CHEMISTRY Final Re sult [facility] [address] [place] [address] * (ABNORMAL) BASIC METABOLIC PANEL (12/27/2024 8:50 AM T) SODIUM 142 136 - 145 mmol/L 12/27/2024 10:02 AM [facility] POTASSIUM 4.1 3.5 - 5.1 mmol/L 12/27/2024 10:02 AM [facility] CHLORIDE 105 98 - 107 mmol/L 12/27/2024 10:02 AM [facility] CO2,TOTAL 25 22 - 29 mmol/L 12/27/2024 10:02 AM [facility] ANION GAP 12 5 - 18 12/27/2024 10:02 AM [facility] GLUCOSE 156(H) 70 - 99 mg/dL 12/27/2024 10:02 AM [facility] CALCIUM 9.2 8.8 - 10.4 mg/dL 12/27/2024 10:02 AM CDT [facility] Comment: Reference ranges for this test were updated on 06/21/2024 to reflect our healthy population more accurately. Reference range changes are not retroactively applied to results, but previous results using the same methodology can be interpreted in the context of the new reference range. BUN 17 8 - 23 mg/dL 12/27/2024 10:02 AM [facility] CREATININE 0.81 0.70 - 1.20 mg/dL 12/27/2024 10:02 AM [facility] BUN/CREAT RATIO 21(H) 10 - 20 10:02 AM [facility] eGFR 89(L) >90 mL/min/1. 73m2 12/27/2024 10:02 AM [facility] Comment:As of 2021, eG FR is calculated by the CKD-EPI creatinine equation without race adjustment. eGFR can be influenced by muscle mass, exercise, and diet. The reported eGFR is an estimation only and is only applicable if the renal function is stable. Blood BLOOD SPECIMEN / Unknown Butterfly / Unknown 12/27/2024 8:50 AM CDT 12/27/2024 9:27 AM T us Eden Lake MD CHEMISTRY Final Re sult [facility] [address] [place] [address] from Last 3 Months Insurance [facility] MR Advance Directives * DNR (Latest Code Status on File) Date Activated Date Inactivated Comments 11/02/2023 3:24 AM 11/16/2023 12:35 PM Question Answer Comments Code Status Discussion: Reviewed Preferences * Full Code Date Activated Date Inactivated Comments 11/02/2023 2:59 AM 11/02/2023 3:24 AM Question Answer Comments Code Status Discussion: Unable to Assess Preferences, Provider to review later Care Teams Hand Shaper Relationship Specialty Start Date End Date Chandana Antonio MD [address] [place] [address] PCP - General 11/02/23
--- OUTSIDE RECORDS SUMMARY | 2025-02-14 15:22 | XMS_ITS ---
Author Organization [facility] er Care Team Providers Care Tanyard Worker Name Role Phone Norma Pederson Unavailable Unavailable León Garcia Unavailable Unavailable Anni Nance Unavailable Unavailable Edgar Parrish Unavailable Unavailable Small, Meghana Unavailable Unavailable Allergies and adverse reactions Code CodeSystem Substance Reaction Severity StartDate Concern Status 09851 RXNORM Vancomycin Mild 04/06/[address] Sulfa Antibiotics Mild 04/06/[address] Penicillins Moderate 04/06/2023 acti ve 7052 RXNORM Morphine Moderate 04/06/2023 active Hiprex Unknown 04/06/2023 active 9471 RXNORM Fluorescein Mild 04/06/2023 active Care Team Name Role Address Phone Organization Aditya Pederson [address] [place], [place], [facility], [place] (Office): [facility] 04/06/2023 - 04/27/2023 León Garcia [address] [place], [address], [place] (Office): [facility] 04/06/2023 - 04/27/2023 Anni Nance [address] [place], [place], [facility], [facility] (Office): [facility] 04/06/2023 - 04/27/2023 Edgar Parrish [address] , [place], [place], [facility], [place] (Office): [facility] 04/06/2023 - 04/27/2023 Meghana Wills [place], [place], [facility], [facility] (Office): [facility] 04/06/2023 - 04/27/2023 Goals Section Goals Description Status Target Date I will be free from falls though the review date . Active 07/16/2023 I will be free from skin breakdown through the r eview date. Active 07/16/2023 I will express my feelings a nd I will share any thoughts of recurring, previously dormant memories to the degree I am comfortable with the care team; through the next review. Active 07/16/2023 Minimal bruising with no epi sodes of uncontrolled bleeding during the next 90 days. Active 07/16/2023 My alteration in skin integr ity will show signs of improvement in healing by the review date Active 07/16/2023 Pain will be controlled. Active 023 Resident will accept nutriti onal supplements as ordered through next review date. Active 07/16/2023 Resident will be able to eff ectively use a pain scale to indicate degree of pain to staff. Active 07/16/2023 Resident will be able to participate in ADL care during stay. Active 07/16/2023 Resident will be clean, dry, and odor free daily through staff assistance and interventions through next review. Active 06/19 Resident will be provided a safe environment. Ac tive 07/16/2023 Resident will demonstrate ad justment to detention placement by/through next review date. Active 07/16/2023 Resident will demonstrate mi nimal discomfort or absence of acute pain and identify positive coping behaviors for chronic pain. Active 07/16/2023 Resident will have episodes and/or s/sx of anxiety less than 5x/week through the review date. Active 07/16/2023 Resident will have no ill effects from prescribe d medications Active 07/16/2023 Resident will participate in activities of choice through next review and/or resident will verbalize satisfaction with self initiated, group or in-room activities that are offered in the facility through next review. Active 07/16/2023 Resident will show decreased episodes and/or s/sx of depression less than 3x/week through the next review. Active 07/16/2023 Resident will verbalize adeq uate relief of pain or ability to cope with incompletely relieved pain. Active 07/16/2023 Resident's acceptable level of pain is: 0 Active 07/16/2023 Resident's safety will be pr otected through staff intervention through the next quarter. Active 07/16/2023 The resident will accept fluids as tolerated. Ac tive 07/16/2023 The resident will be able to verbalize/communicate required assistance post-discharge and the services required to meet needs before discharge. Active 07/16/2023 The resident will be free of symptoms of dehydration and maintain moist mucous membranes and good skin turgor through review date. Active 07/16/2023 The resident will have no in dications of acute eye problems through the review. Active 07/16/2023 The resident will improve cu rrent level of function in bathing/showering through the next review date. Active 2022 The resident will improve cu rrent level of function in bed mobility through next review date. Active 07/16/2023 The resident will improve cu rrent level of function in dressing through next review date. Active 07/16/2023 The resident will improve cu rrent level of function in personal hygiene through next review date. Active 07/16/2023 The resident will improve cu rrent level of function in toileting through next review date. Active 07/16/2023 The resident will improve cu rrent level of function in transferring through next review date. Active 07/16/2023 The resident will increase l evel of mobility once cleared by surgical team through the next review date. Active 07/16/2023 The resident will maintain s table nutrition and hydration with no significant weight fluctuations through review date. Active 1 09/15/2022 The resident will pass soft, formed stool at the preferred frequency of every 1-3 days through the review date. Active 09/15/2022 The resident will use approp riate visual devices to promote participation in ADLs and other activities. Active 07/16/2023 The resident will verbalize/ communicate an understanding of the discharge plan and describe the desired outcome by the review date. Active 07/16/2023 The residents advanced direc tives and/or wishes will be followed through next review. Active 07/16/2023 Immunizations Immunization Status Vaccine Details Vaccine Code CodeSystem Date Notes Influenza completed Influenza, high-dose, split virus, quadrivalent, injectable, preservative free 197 CVX created date: 04/09/2023 administer ed date: 04/23/2022 TB 2 Step Mantoux Skin Test completed tuberculin skin test; unspecified formulation lotNumber: [id number] expiry: 04/30/2023 Mfg: Aplisol Given 0.1 ml Right Forearm intradermally Step 2 of Multi-step with next step required 98 CVX created date: 04/21/2023 consent date: 04/20/2023 administer ed date: 04/21/2023 Educated by hTuy Witt on 04/20/2023 TB 2 Step Mantoux Skin Test completed tuberculin skin test; unspecified formulation lotNumber: [id number] expiry: 09/26/2024 Mfg: phar pharmaceutical Given 0.1 ml Left Forearm subcutaneously Step 1 of Multi-step with next step required 98 CVX created date: 04/07/2023 consent date: 04/07/2023 administer ed date: 04/07/2023 Tdap completed tetanus toxoid, reduced diphtheria toxoid, and acellular pertussis vaccine, adsorbed 115 CVX created date: 04/09/2023 administer ed date: 09/22/2017 Shingrix(recombi nant) completed zoster vaccine recombinant 187 CVX created date: 04/09/2023 administer ed date: 04/04/2018 Shingrix(recombi nant) completed zoster vaccine recombinant 187 CVX created date: 04/09/2023 administer ed date: 12/19/2017 Zostavax (live) completed zoster vaccine, live 121 CVX created date: 04/09/2023 administer ed date: 03/18/2010 Prevnar 13 completed pneumococcal conjugate vaccine, 13 valent 133 CVX created date: 04/09/2023 administer ed date: 07/23/2015 PPSV23 (Pneumococcal) Dose 1 completed pneumococcal polysaccharide vaccine, 23 valent 33 CVX created date: 04/09/2023 administer ed date: 03/08/2008 Pfizer COVID Vaccine - Booster completed SARS-COV-2 (COVID-19) vaccine, mRNA, spike protein, LNP, preservative free, 30 mcg/0.3mL dose 208 CVX created date: 04/09/2023 administer ed date: 04/05/2021 Apigee COVID Vaccine - Dose 1 completed SARS-COV-2 (COVID-19) vaccine, mRNA, spike protein, LNP, preservative free, 30 mcg/0.3mL dose 208 CVX created date: 04/09/2023 administer ed date: 09/26/2020 Pfizer COVID Vaccine - Dose 2 completed SARS-COV-2 (COVID-19) vaccine, mRNA, spike protein, LNP, preservative free, 30 mcg/0.3mL dose 208 CVX created date: 04/09/2023 administer ed date: 10/17/2020 Apigee COVID Vaccine - Booster 2 completed SARS-COV-2 (COVID-19) vaccine, mRNA, spike protein, LNP, preservative free, 30 mcg/0.3mL dose 208 CVX created date: 04/09/2023 administer ed date: 10/10/2021 Apigee COVID Bivalent Vaccine completed SARS-COV-2 (COVID-19) vaccine, mRNA, spike protein, LNP, bivalent, preservative free, 30 mcg/0.3 mL dose, sammie-sucrose formulation 300 CVX created date: 04/09/2023 administer ed date: 01/27/[address] [facility] COVID Bivalent Vaccine completed SARS-COV-2 (COVID-19) vaccine, mRNA, spike protein, LNP, bivalent, preservative free, 30 mcg/0.3 mL dose, sammie-sucrose formulation 300 CVX created date: 04/09/2023 administer ed date: 05/02/2022 Mental Status Section Date Assessment Total Score Description 04/27/2023 CAM 2 Delirium indica cindy 04/12/2023 BIMS 15 cognitively int act CAM 0 No delirium ind icated PHQ-9 00 Problems Problem # Description Date of onset Resolved Date Code CodeSystem Concern Status 1 MAJOR DEPRESSIVE DISORDER, RECURRENT, SEVERE WITH PSYCHOTIC SYMPTOMS [address] active 2 ANXIETY DISORDER, UNSPECIFIED [address] active 3 ATHEROSCLEROTIC HEART DISEASE OF [place] CORONARY ARTERY WITHOUT ANGINA PECTORIS [address] active 4 CHRONIC OSTEOMYELITIS WITH DRAINING SINUS, RIGHT HUMERUS 023 04/06/[address] completed 5 EXUDATIVE AGE-RELATED MACULAR DEGENERATION, BILATERAL, WITH ACTIVE CHOROIDAL NEOVASCULARIZATION [address] active 6 GASTRO-ESOPHAGEAL REFLUX DISEASE WITHOUT ESOPHAGITIS [address] active 7 HYPERLIPIDEMIA, UNSPECIFIED [address] active 8 HYPERTENSIVE HEART DISEASE WITHOUT HEART FAILURE [address] active 9 MAJOR DEPRESSIVE DISORDER, SINGLE EPISODE, IN PARTIAL REMISSION [address] active 10 NEED FOR ASSISTANCE WITH PERSONAL CARE [address] active 11 OBESITY, UNSPECIFIED 023 04/06/[address] completed 12 OBSTRUCTIVE SLEEP APNEA (ADULT) (PEDIATRIC) [address] active 13 OSTEOMYELITIS, UNSPECIFIED 023 04/06/[address] completed 14 OTHER ABNORMALITIES OF GAIT AND MOBILITY [address] active 15 OTHER ACUTE OSTEOMYELITIS, RIGHT ANKLE AND FOOT [address] active 16 OTHER COMPLICATIONS OF SKIN GRAFT (ALLOGRAFT) (AUTOGRAFT) 023 05/17/[address] completed 17 POLYNEUROPATHY, UNSPECIFIED [address] active 18 PRESENCE OF AORTOCORONARY BYPASS GRAFT [address] active 19 PYOGENIC ARTHRITIS, UNSPECIFIED [address] active 20 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 STORM 0[address] active 21 UNSPECIFIED ATRIAL FIBRILLATION [address] active 22 VENOUS INSUFFICIENCY (CHRONIC) (PERIPHERAL) [address] active Reason for Referral No Reasons for Referral Entered Social History Social History Observation Description Start Date End Date Code Code System Current Smoking Status Tobacco smoking consumption unknown 192413499 SNOMED CT Sex Assigned At Male 1945 65520-3 [facility] Gender Identity Vital Signs Code Code System Vitals Name Values and Units Timing Information 9279-1 [facility] Respiratory Rate Value=18.0 Units=/m in 04/27/2023 8462-4 [facility] Blood Pressure-Diastolic Value=64 Un its=mmHg 04/27/2023 8480-6 [facility] Blood Pressure-Systolic Demrd=558 Un its=mmHg 04/27/2023 8310-5 [facility] Body Temperature Value=97.0 Units= F 04/27/2023 8867-4 [facility] Heart rate Value=64.0 Units=/min 06/2023 74958-1 [facility] O2 % BldC Oximetry Value=97.0 Units= % 04/27/2023 05688-7 [facility] Pain Level Value=0.0 04/27/2023 59087-4 [facility] Weight Hyttb=677.6 Units=Lbs 03/2023 8302-2 [facility] Height Value=71.0 Units=Inches 04/07/2023
--- OUTSIDE RECORDS SUMMARY | 2025-02-14 15:22 | XMS_ITS ---
Author Organization [facility] Care Team Providers Care Director Of Convention Services Name Role Phone Drew Randle Unavailable Unavailable Jose Moscoso Unavailable Unavailable Anni Gee Unavai lable Unavailable Thuy Bowers (Katy) Unavailable Unavai lable Allergies and adverse reactions Code CodeSystem Substance Reaction Severity StartDate Concern Status 78070 RXNORM Vancomycin Unknown 12/12/[address] Sulfa Antibiotics Unknown 12/12/[address] Penicillins Unknown 12/12/2021 activ e 7052 RXNORM Morphine Unknown 12/12/2021 active Hiprex Unknown 12/12/2021 active 9471 RXNORM Fluorescein Unknown 12/12/2021 active Care Team Name Role Address Phone Organization Dates Drew Jer PCP [address] [place], [address], [place] (Office): [facility] 11/16/2023 - 11/24/2023 Jose Lepe [address] [place], [address], [facility] (Office): [facility] 11/16/2023 - 11/24/2023 [place], [address], [place] [facility] 11/16/2023 - 11/24/2023 Thuy JustinyShwetha Bowers [address] [facility], [place], [address], [place] States (Office): : [facility] 11/16/2023 - 11/24/2023 Immunizations Immunization Status Vaccine Details Vaccine Code CodeSystem Date Notes Influenza completed Influenza, high-dose, split virus, quadrivalent, injectable, preservative free 197 CVX created date: 12/16/2021 administer ed date: 05/31/2023 TB 2 Step Mantoux Skin Test completed tuberculin skin test; unspecified formulation lotNumber: [id number] expiry: 10/14/2024 Mfg: par Given 0.1 ml Left Forearm intradermally Step 1 of Multi-step with next step required 98 CVX created date: 11/17/2023 consent date: 11/16/2023 administer ed date: 11/17/2023 Step 1 TB 2 Step Mantoux Skin Test completed tuberculin skin test; unspecified formulation lotNumber: [id number] expiry: 06/17/2023 Mfg: Par Pharmaceutical Given 0.1 ml Right Forearm intradermally Step 1 of Multi-step with next step required 98 CVX created date: 12/27/2021 consent date: 12/27/2021 administer ed date: 12/27/2021 Educated by Caryl Hammond on 12/26/2021 TB 2 Step Mantoux Skin Test completed tuberculin skin test; unspecified formulation lotNumber: [id number] expiry: 06/16/2022 Mfg: Aplisol Given 0.1 ml Right Forearm intradermally Step 1 of Multi-step with next step required 98 CVX created date: 12/12/2021 consent date: 12/12/2021 administer ed date: 12/12/2021 PCV-13 completed pneumococcal conjugate vaccine, 13 valent 133 CVX created date: 12/16/2021 administer ed date: 07/23/2015 PCV- 23 completed pneumococcal polysaccharide vaccine, 23 valent 33 CVX created date: 12/16/2021 administer ed date: 03/08/2008 SARS-COV-2 (COVID-19) completed SARS-COV-2 (COVID-19) vaccine, mRNA, spike protein, LNP, bivalent, preservative free, 30 mcg/0.3 mL dose, sammie-sucrose formulation Step 1 of Multi-step with next step required 300 CVX created date: 11/17/2023 administer ed date: 01/27/2023 SARS-COV-2 (COVID-19) completed SARS-COV-2 (COVID-19) vaccine, mRNA, spike protein, LNP, bivalent, preservative free, 3 mcg/0.2 mL dose, sammie-sucrose formulation Step 1 of Multi-step with next step required 302 CVX created date: 11/16/2023 administer ed date: 01/27/2023 SARS-COV-2 (COVID-19) completed SARS-COV-2 (COVID-19) vaccine, mRNA, spike protein, LNP, preservative free, 30 mcg/0.3mL dose Step 2 of Multi-step with next step required 208 CVX created date: 12/16/2021 administer ed date: 10/17/2020 SARS-COV-2 (COVID-19) completed SARS-COV-2 (COVID-19) vaccine, mRNA, spike protein, LNP, preservative free, 30 mcg/0.3mL dose Step 1 of Multi-step with next step required 208 CVX created date: 12/16/2021 administer ed date: 09/26/2020 SARS-COV-2 (COVID-19) Booster 3rd Dose completed SARS-COV-2 (COVID-19) vaccine, mRNA, spike protein, LNP, preservative free, 30 mcg/0.3mL dose 208 CVX created date: 12/16/2021 administer ed date: 04/05/2021 SARS-COV-2 (COVID-19)Booste r 4th Dose completed SARS-COV-2 (COVID-19) vaccine, mRNA, spike protein, LNP, preservative free, 30 mcg/0.3mL dose 208 CVX created date: 12/16/2021 administer ed date: 10/10/2021 Mental Status Section Date Assessment Total Score Description 11/23/2023 CAM 0 No delirium ind icated 11/22/2023 BIMS 14 cognitively int act CAM 0 No delirium ind icated PHQ-9 02 minimal depress ion Problems Problem # Description Date of onset Resolved Date Code CodeSystem Concern Status 1 ACQUIRED ABSENCE OF OTHER RIGHT TOE(S) [address] active 2 ANXIETY DISORDER, UNSPECIFIED [address] active 3 ATHEROSCLEROSIS OF [place] [address] active 4 ATRIOVENTRICULAR BLOCK, COMPLETE [address] active 5 BENIGN PROSTATIC HYPERPLASIA WITH LOWER URINARY TRACT SYMPTOMS [address] active 6 BENIGN PROSTATIC HYPERPLASIA WITHOUT LOWER URINARY TRACT SYMPTOMS [address] active 7 ENCOUNTER FOR ADJUSTMENT AND MANAGEMENT OF OTHER PART OF CARDIAC PACEMAKER [address] active 8 EXUDATIVE AGE-RELATED MACULAR DEGENERATION, BILATERAL, WITH ACTIVE CHOROIDAL NEOVASCULARIZATION [address] active 9 HYPERTENSIVE HEART DISEASE WITHOUT HEART FAILURE [address] active 10 MAJOR DEPRESSIVE DISORDER, RECURRENT, SEVERE WITH PSYCHOTIC SYMPTOMS [address] active 11 MUSCLE WEAKNESS (GENERALIZED) [address] active 12 NUTRITIONAL ANEMIA, UNSPECIFIED [address] active 13 OBSTRUCTIVE SLEEP APNEA (ADULT) (PEDIATRIC) [address] active 14 OTHER ABNORMALITIES OF GAIT AND MOBILITY [address] active 15 OTHER OBSTRUCTIVE AND REFLUX UROPATHY [address] active 16 PERSONAL HISTORY OF COVID-[address] active 17 PRESSURE ULCER OF [place] REGION, STAGE 2 [address] active 18 REPEATED FALLS [address] active 19 SLEEP DISORDER, UNSPECIFIED [address] active 20 THYROTOXICOSIS, UNSPECIFIED WITHOUT THYROTOXIC CRISIS OR STORM [address] active 21 UNSPECIFIED MOOD [AFFECTIVE] DISORDER [address] active 22 UNSPECIFIED PROTEIN-CALORIE MALNUTRITION [address] active 23 ATHEROSCLEROTIC HEART DISEASE OF [place] CORONARY ARTERY WITHOUT ANGINA PECTORIS 11/16/[address] completed 24 BENIGN PROSTATIC HYPERPLASIA WITH LOWER URINARY TRACT SYMPTOMS 11/16/[address] completed 25 CONSTIPATION, UNSPECIFIED 11/16/[address] completed 26 ESSENTIAL (PRIMARY) HYPERTENSION 51172687 SNOMED CT active 27 GASTRO-ESOPHAGEAL REFLUX DISEASE WITHOUT ESOPHAGITIS 049373074 SNOMED CT active 28 MELANOCYTIC NEVI, UNSPECIFIED 11/16/[address] completed 29 OTHER OBSTRUCTIVE AND REFLUX UROPATHY 11/16/[address] completed 30 PINGUECULA, BILATERAL 11/16/[address] completed 31 POLYNEUROPATHY, UNSPECIFIED 022 11/16/[address] completed 32 TREMOR, UNSPECIFIED 81102935 SNOMED CT active 33 ADULT FAILURE TO THRIVE 11/16/[address] completed 34 CELLULITIS OF LEFT LOWER LIMB 11/16/[address] completed 35 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, SUBSEQUENT ENCOUNTER 11/16/[address] completed 36 EXUDATIVE AGE-RELATED MACULAR DEGENERATION, BILATERAL, WITH ACTIVE CHOROIDAL NEOVASCULARIZATION 11/16/[address] completed 37 GENERALIZED ANXIETY DISORDER 12/13/[address] completed 38 GENERALIZED ANXIETY DISORDER 11/16/[address] completed 39 HISTORY OF FALLING 11/16/[address] completed 40 HYPERLIPIDEMIA, UNSPECIFIED [address] active 41 HYPERTENSIVE HEART DISEASE WITHOUT HEART FAILURE 11/16/[address] completed 42 MAJOR DEPRESSIVE DISORDER, SINGLE EPISODE, UNSPECIFIED 12/13/[address] completed 43 MAJOR DEPRESSIVE DISORDER, SINGLE EPISODE, UNSPECIFIED 11/16/[address] completed 44 OBESITY, UNSPECIFIED 11/16/[address] completed 45 OBSTRUCTIVE SLEEP APNEA (ADULT) (PEDIATRIC) 11/16/[address] completed 46 OLD MYOCARDIAL INFARCTION 11/16/[address] completed 47 OTHER ACUTE OSTEOMYELITIS, LEFT ANKLE AND FOOT 12/13/[address] completed 48 PRESENCE OF AORTOCORONARY BYPASS GRAFT 958182960 SNOMED CT active 49 SEROUS DETACHMENT OF RETINAL PIGMENT EPITHELIUM, BILATERAL 11/16/[address] completed 50 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 STORM 11/16/[address] completed 51 THYROTOXICOSIS, UNSPECIFIED WITHOUT THYROTOXIC CRISIS OR STORM 11/16/[address] completed 52 TINEA PEDIS 11/16/[address] completed 53 UNSPECIFIED ATRIAL FIBRILLATION 39887522 SNOMED CT active Reason for Referral No Reasons for Referral Entered Social History Social History Observation Description Start Date End Date Code Code System Current Smoking Status Tobacco smoking consumption unknown 505595601 SNOMED CT Sex Assigned At Male 1945 [address]74-5 [facility] Gender Identity Vital Signs Code Code System Vitals Name Values and Units Timing Information 26594-3 [facility] Weight Kryqx=581.4 Units=Lbs 03/2024 29177-0 [facility] Pain Level Value=0.0 11/23/2023 9279-1 [facility] Respiratory Rate Value=18.0 Units=/m in 11/23/2023 8462-4 [facility] Blood Pressure-Diastolic Value=70 Un its=mmHg 11/23/2023 8480-6 [facility] Blood Pressure-Systolic Tlkjj=498 Un its=mmHg 11/23/2023 8310-5 [facility] Body Temperature Value=97.4 Units= F 11/23/2023 8867-4 [facility] Heart rate Value=54.0 Units=/min 03/2024 71235-6 [facility] O2 % BldC Oximetry Value=92.0 Units= % 11/23/2023 8302-2 [facility] Height Value=70.0 Units=Inches 11/16/2023
[2025-02-14 15:40] LABS: Appearance Urine Cloudy (Clear)
--- OUTSIDE RECORDS SUMMARY | 2025-02-15 00:37 | XMS_ITS ---
Author Organization [facility] Care Team Providers Care Mill Worker Name Role Phone Drew Randle Unavailable Unavailable Jose Moscoso Unavailable Unavailable Anni Gee Unavai lable Unavailable Thuy Bowers (Katy) Unavailable Unavai lable Allergies and adverse reactions Code CodeSystem Substance Reaction Severity StartDate Concern Status 22490 RXNORM Vancomycin Unknown 12/12/[address] Sulfa Antibiotics Unknown 12/12/[address] Penicillins Unknown 12/12/2021 activ e 7052 RXNORM Morphine Unknown 12/12/2021 active Hiprex Unknown 12/12/2021 active 9471 RXNORM Fluorescein Unknown 12/12/2021 active Care Team Name Role Address Phone Organization Dates Drew Jer PCP [address] [place], [address], [place] (Office): [facility] 11/16/2023 - 11/24/2023 Jose Lepe [address] [place], [address], [facility] (Office): [facility] 11/16/2023 - 11/24/2023 [place], [address], [place] [facility] 11/16/2023 - 11/24/2023 Thuy JustinyShwetha Bowers [address] [facility], [place], [address], [place] (Office): : [facility] 11/16/2023 - 11/24/2023 Immunizations Immunization Status Vaccine Details Vaccine Code CodeSystem Date Notes Influenza completed Influenza, high-dose, split virus, quadrivalent, injectable, preservative free 197 CVX created date: 12/16/2021 administer ed date: 05/31/2023 TB 2 Step Mantoux Skin Test completed tuberculin skin test; unspecified formulation lotNumber: [id number] expiry: 10/14/2024 Mfg: par Given 0.1 ml Left Forearm intradermally Step 1 of Multi-step with next step required 98 CVX created date: 11/17/2023 consent date: 11/16/2023 administer ed date: 11/17/2023 Step 1 TB 2 Step Mantoux Skin Test completed tuberculin skin test; unspecified formulation lotNumber: [id number] expiry: 06/17/2023 Mfg: Par Pharmaceutical Given 0.1 ml Right Forearm intradermally Step 1 of Multi-step with next step required 98 CVX created date: 12/27/2021 consent date: 12/27/2021 administer ed date: 12/27/2021 Educated by Caryl Hammond on 12/26/2021 TB 2 Step Mantoux Skin Test completed tuberculin skin test; unspecified formulation lotNumber: [id number] expiry: 06/16/2022 Mfg: Aplisol Given 0.1 ml [...] ACQUIRED ABSENCE OF OTHER RIGHT TOE(S) [address] active 2 ANXIETY DISORDER, UNSPECIFIED [address] active 3 ATHEROSCLEROSIS OF [place] [address] active 4 ATRIOVENTRICULAR BLOCK, COMPLETE [address] active 5 BENIGN PROSTATIC HYPERPLASIA WITH LOWER URINARY TRACT SYMPTOMS [address] active 6 BENIGN PROSTATIC HYPERPLASIA WITHOUT LOWER URINARY TRACT SYMPTOMS [address] active 7 ENCOUNTER FOR ADJUSTMENT AND MANAGEMENT OF OTHER PART OF CARDIAC PACEMAKER [address] active 8 EXUDATIVE AGE-RELATED MACULAR DEGENERATION, BILATERAL, WITH ACTIVE CHOROIDAL NEOVASCULARIZATION [address] active 9 HYPERTENSIVE HEART DISEASE WITHOUT HEART FAILURE [address] active 10 MAJOR DEPRESSIVE DISORDER, RECURRENT, SEVERE WITH PSYCHOTIC SYMPTOMS [address] active 11 MUSCLE WEAKNESS (GENERALIZED) [address] active 12 NUTRITIONAL ANEMIA, UNSPECIFIED [address] active 13 OBSTRUCTIVE SLEEP APNEA (ADULT) (PEDIATRIC) [address] active 14 OTHER ABNORMALITIES OF GAIT AND MOBILITY [address] active 15 OTHER OBSTRUCTIVE AND REFLUX UROPATHY [address] active 16 PERSONAL HISTORY OF COVID-[address] active 17 PRESSURE ULCER OF SACRAL REGION, STAGE [address] active 18 REPEATED FALLS [address] active 19 SLEEP DISORDER, UNSPECIFIED [address] active 20 THYROTOXICOSIS, UNSPECIFIED WITHOUT THYROTOXIC CRISIS OR STORM [address] active 21 UNSPECIFIED MOOD [AFFECTIVE] DISORDER [address] active 22 UNSPECIFIED PROTEIN-CALORIE MALNUTRITION [address] active 23 ATHEROSCLEROTIC HEART DISEASE OF [place] CORONARY ARTERY WITHOUT ANGINA PECTORIS 11/16/[address] completed 24 BENIGN PROSTATIC HYPERPLASIA WITH LOWER URINARY TRACT SYMPTOMS 11/16/[address] completed 25 CONSTIPATION, UNSPECIFIED 11/16/[address] completed 26 ESSENTIAL (PRIMARY) HYPERTENSION 87897823 SNOMED CT active 27 GASTRO-ESOPHAGEAL REFLUX DISEASE WITHOUT ESOPHAGITIS 206681052 SNOMED CT active 28 MELANOCYTIC NEVI, UNSPECIFIED 11/16/[address] completed 29 OTHER OBSTRUCTIVE AND REFLUX UROPATHY 11/16/[address] completed 30 PINGUECULA, BILATERAL 11/16/[address] completed 31 POLYNEUROPATHY, UNSPECIFIED 022 11/16/[address] completed 32 TREMOR, UNSPECIFIED 88390570 SNOMED CT active 33 ADULT FAILURE TO THRIVE 11/16/[address] completed 34 CELLULITIS OF LEFT LOWER LIMB 11/16/[address] completed 35 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, SUBSEQUENT ENCOUNTER 11/16/[address] completed 36 EXUDATIVE AGE-RELATED MACULAR DEGENERATION, BILATERAL, WITH ACTIVE CHOROIDAL NEOVASCULARIZATION 11/16/[address] completed 37 GENERALIZED ANXIETY DISORDER 12/13/[address] completed 38 GENERALIZED ANXIETY DISORDER 11/16/[address] completed 39 HISTORY OF FALLING 11/16/[address] completed 40 HYPERLIPIDEMIA, UNSPECIFIED [address] active 41 HYPERTENSIVE HEART DISEASE WITHOUT HEART FAILURE 11/16/[address] completed 42 MAJOR DEPRESSIVE DISORDER, SINGLE EPISODE, UNSPECIFIED 12/13/[address] completed 43 MAJOR DEPRESSIVE DISORDER, SINGLE EPISODE, UNSPECIFIED 11/16/[address] completed 44 OBESITY, UNSPECIFIED 11/16/[address] completed 45 OBSTRUCTIVE SLEEP APNEA (ADULT) (PEDIATRIC) 11/16/[address] completed 46 OLD MYOCARDIAL INFARCTION 11/16/[address] completed 47 OTHER ACUTE OSTEOMYELITIS, LEFT ANKLE AND FOOT 12/13/[address] completed 48 PRESENCE OF AORTOCORONARY BYPASS GRAFT 328982648 SNOMED CT active 49 SEROUS DETACHMENT OF RETINAL PIGMENT EPITHELIUM, BILATERAL 11/16/[address] completed 50 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 STORM 11/16/[address] completed 51 THYROTOXICOSIS, UNSPECIFIED WITHOUT THYROTOXIC CRISIS OR STORM 11/16/[address] completed 52 TINEA PEDIS 11/16/[address] completed 53 UNSPECIFIED ATRIAL FIBRILLATION 19716466 SNOMED CT active Reason for Referral No Reasons for Referral Entered Social History Social History Observation Description Start Date End Date Code Code System Current Smoking Status Tobacco smoking consumption unknown 283766200 SNOMED CT Sex Assigned At Male 1945 19324-6 [facility] Gender Identity Vital Signs Code Code System Vitals Name Values and Units Timing Information 71084-7 LOINC Weight Ysirq=897.4 Units=Lbs 03/2024 01724-4 LOINC Pain Level Value=0.0 11/23/2023 9279-1 LOINC Respiratory Rate Value=18.0 Units=/m in 11/23/2023 8462-4 LOINC Blood Pressure-Diastolic Value=70 Un its=mmHg 11/23/2023 8480-6 LOINC Blood Pressure-Systolic Qjtfw=873 Un its=mmHg 11/23/2023 8310-5 [facility] Body Temperature Value=97.4 Units= F 11/23/2023 8867-4 [facility] Heart rate Value=54.0 Units=/min 03/2024 21999-5 [facility] O2 % BldC Oximetry Value=92.0 Units= % 11/23/2023 8302-2 [facility] Height Value=70.0 Units=Inches 11/16/2023
--- OUTSIDE RECORDS SUMMARY | 2025-02-15 00:37 | XMS_ITS | Clinical Summary ---
Author Organization [facility] Address [facility] [place] [address] Care Team Providers Care Chucking Machine Set Up Operator Tool Name Role Phone Chandana Antonio MD Primary [...] Department Care Team Description 12/26/2024 Lab Requisition [facility] [phone] Eden Lake MD from Last 3 Months [...] - 4.20 uIU/mL 12/27/2024 10:02 AM T [facility] Blood BLOOD SPECIMEN / Unknown Butterfly / Unknown 12/27/2024 8:50 AM CDT 12/27/2024 9:27 AM CDT [facility] - 12/27/2024 10:02 AM CDT In Adults, TSH values between 5.00 and 10.00 uIU/ml do not necessarily indicate the presence of Hypothyroidism. Correlation with clinical findings such as presence of goiter and/or Thyroperoxidase (TPO) Antibody may be helpful. For more information please refer to ELLY 2004; 291: 228-238. us Eden Lake MD CHEMISTRY Final Re sult [facility] [address] [place] [address] * (ABNORMAL) CBC W PLT NO DIFF (12/27/2024 8:50 AM CDT) WHITE BLOOD COUNT 7.1 4.5 - 11.0 thou/cu mm 12/27/2024 9:42 AM [facility] RED BLOOD COUNT 3.80(L) 4.30 - 5.90 mil/cu mm 12/27/2024 9:42 AM [facility] HEMOGLOBIN 13.8 13.5 - 17.5 g/dL 12/27/2024 9:42 AM [facility] HEMATOCRIT 40.1 37.0 - 53.0 % 12/27/2024 9:42 AM [facility] MCV 106(H) 80 - 100 fL 12/27/2024 9:42 AM [facility] MCH 36.3(H) 26.0 - 34.0 pg 12/27/2024 9:42 AM [facility] MCHC 34.4 32.0 - 36.0 g/dL 12/27/2024 9:42 AM CDT [facility] RDW 12.9 11.5 - 15.5 % 12/27/2024 9:42 AM CDT [facility] PLATELET COUNT 153 140 - 440 thou/cu mm 12/27/2024 9:42 AM CDT [facility] MPV 9.9 6.5 - 11.0 fL 12/27/2024 9:42 AM CDT [facility] Blood BLOOD SPECIMEN / Unknown Butterfly / Unknown 12/27/2024 8:50 AM CDT 12/27/2024 9:27 AM CDT us Eden Lake MD HEMATOLOGY Final Re sult [facility] [address] [place] [address] * T4,FREE (12/27/2024 8:50 AM CDT) T4,FREE 1.23 0.93 - 1.70 ng/dL 12/27/2024 11:28 PM CDT [facility] Blood BLOOD SPECIMEN / Unknown Butterfly / Unknown 12/27/2024 8:50 AM CDT 12/27/2024 9:27 AM CDT us Eden Lake MD CHEMISTRY Final Re sult [facility] [address] [place] [id number] * HEPATIC FUNCTION PANEL (12/27/2024 8:50 AM CDT) ALBUMIN 4.3 4.0 - 4.9 g/dL 12/27/2024 10:02 AM CDT [facility] PROTEIN,TOTAL 6.6 6.0 - 8.0 g/dL 12/27/2024 10:02 AM CDT [facility] BILIRUBIN,TOTAL 0.4 0.0 - 1.2 mg/dL 12/27/2024 10:02 AM [facility] BILIRUBIN,DIRECT 0.2 0.0 - 0.2 mg/dL 12/27/2024 10:02 AM [facility] BILIRUBIN,INDIRE CT 0.2 0.2 - 0.8 mg/dL 12/27/2024 10:02 AM [facility] ALK PHOSPHATASE 86 40 - 129 IU/L 12/27/2024 10:02 AM [facility] ALT (SGPT) 17 10 - 50 IU/L 12/27/2024 10:02 AM [facility] AST (SGOT) 21 10 - 50 IU/L 12/27/2024 10:02 AM [facility] Blood BLOOD SPECIMEN / Unknown Butterfly / Unknown 12/27/2024 8:50 AM CDT 12/27/2024 9:27 AM T us Eden Lake MD CHEMISTRY Final Re sult [facility] [address] [place] [address] * (ABNORMAL) BASIC METABOLIC PANEL (12/27/2024 8:50 AM T) SODIUM 142 136 - 145 mmol/L 12/27/2024 10:02 AM [facility] POTASSIUM 4.1 3.5 - 5.1 mmol/L 12/27/2024 10:02 AM [facility] CHLORIDE 105 98 - 107 mmol/L 12/27/2024 10:02 AM [facility] CO2,TOTAL 25 22 - 29 mmol/L 12/27/2024 10:02 AM [facility] ANION GAP 12 5 - 18 12/27/2024 10:02 AM [facility] GLUCOSE 156(H) 70 - 99 mg/dL 12/27/2024 10:02 AM [facility] CALCIUM 9.2 8.8 - 10.4 mg/dL 12/27/2024 10:02 AM CDT [facility] Comment: Reference ranges for this test were updated on 06/21/2024 to reflect our healthy population more accurately. Reference range changes are not retroactively applied to results, but previous results using the same methodology can be interpreted in the context of the new reference range. BUN 17 8 - 23 mg/dL 12/27/2024 10:02 AM [facility] CREATININE 0.81 0.70 - 1.20 mg/dL 12/27/2024 10:02 AM [facility] BUN/CREAT RATIO 21(H) 10 - 20 10:02 AM [facility] eGFR 89(L) >90 mL/min/1. 73m2 12/27/2024 10:02 AM [facility] Comment:As of 2021, eG FR [...] Eden Lake MD CHEMISTRY Final Re sult [facility] [address] [place] [address] from Last 3 Months Insurance [facility] MR Advance Directives * DNR (Latest Code Status on File) Date Activated Date Inactivated Comments 11/02/2023 3:24 AM 11/16/2023 12:35 PM Question Answer Comments Code Status Discussion: Reviewed Preferences * Full Code Date Activated Date Inactivated Comments 11/02/2023 2:59 AM 11/02/2023 3:24 AM Question Answer Comments Code Status Discussion: Unable to Assess Preferences, Provider to review later Care Teams Chucking Machine Set Up Operator Tool Relationship Specialty Start Date End Date Chandana Antonio MD [address] [place] [address] PCP - General 11/02/23
--- OUTSIDE RECORDS SUMMARY | 2025-02-15 00:38 | XMS_ITS ---
Author Organization [facility] Care Team Providers Care Wool And Pelt Grader Name Role Phone Norma Pederson Unavailable Unavailable León aGrcia Unavailable Unavailable Anni Nance Unavailable Unavailable Edgar Parrish Unavailable Unavailable Small, Meghana Unavailable Unavailable Allergies and adverse reactions Code CodeSystem Substance Reaction Severity StartDate Concern Status 15660 RXNORM Vancomycin Mild 04/06/[address] Sulfa Antibiotics Mild 04/06/[address] Penicillins Moderate 04/06/2023 acti ve 7052 RXNORM Morphine Moderate 04/06/2023 active Hiprex Unknown 04/06/2023 active 9471 RXNORM Fluorescein Mild 04/06/2023 active Care Team Name Role Address Phone Organization Aditya Pederson [address] [place], [place], [facility], [place] (Office): [facility] 04/06/2023 - 04/27/2023 León Garcia [address] [place], [address], [place] (Office): [facility] 04/06/2023 - 04/27/2023 Anni Nance [address] [place], [place], [facility], [facility] (Office): [facility] 04/06/2023 - 04/27/2023 Edgar Parrish [address] , [place], [place], [facility], [place] (Office): [facility] 04/06/2023 - 04/27/2023 Meghana Wills [place], [place], [facility], [facility] (Office): [facility] 04/06/2023 - 04/27/2023 Goals Section Goals [...] 07/16/2023 Resident will demonstrate ad justment to mcc placement by/through next review date. Active 07/16/2023 [...] completed tuberculin skin test; unspecified formulation lotNumber: [id number] expiry: 04/30/2023 Mfg: Aplisol Given 0.1 ml Right Forearm intradermally Step 2 of Multi-step with next step required 98 CVX created date: 04/21/2023 consent date: 04/20/2023 administer ed date: 04/21/2023 Educated by Thuy Witt on 04/20/2023 TB 2 Step Mantoux Skin Test completed tuberculin skin test; unspecified formulation lotNumber: [id number] expiry: 09/26/2024 Mfg: phar pharmaceutical Given 0.1 [...] created date: 04/09/2023 administer ed date: 04/05/2021 [employer] COVID Vaccine - Dose 1 completed SARS-COV-2 (COVID-19) vaccine, mRNA, spike protein, LNP, preservative free, 30 mcg/0.3mL dose 208 CVX created date: 04/09/2023 administer ed date: 09/26/2020 Pfizer COVID Vaccine - Dose 2 completed SARS-COV-2 (COVID-19) vaccine, mRNA, spike protein, LNP, preservative free, 30 mcg/0.3mL dose 208 CVX created date: 04/09/2023 administer ed date: 10/17/2020 [employer] COVID Vaccine - Booster 2 completed SARS-COV-2 (COVID-19) vaccine, mRNA, spike protein, LNP, preservative free, 30 mcg/0.3mL dose 208 CVX created date: 04/09/2023 administer ed date: 10/10/2021 [employer] COVID Bivalent Vaccine completed SARS-COV-2 (COVID-19) vaccine, mRNA, spike protein, LNP, bivalent, preservative free, 30 mcg/0.3 mL dose, sammie-sucrose formulation 300 CVX created date: 04/09/2023 administer ed date: 01/27/2023 [facility] COVID Bivalent Vaccine completed SARS-COV-2 (COVID-19) vaccine, [...] DISORDER, RECURRENT, SEVERE WITH PSYCHOTIC SYMPTOMS [address] active 2 ANXIETY DISORDER, UNSPECIFIED [address] active 3 ATHEROSCLEROTIC HEART DISEASE OF [place] CORONARY ARTERY WITHOUT ANGINA PECTORIS [address] active 4 CHRONIC OSTEOMYELITIS WITH DRAINING SINUS, RIGHT HUMERUS 023 04/06/[address] completed 5 EXUDATIVE AGE-RELATED MACULAR DEGENERATION, BILATERAL, WITH ACTIVE CHOROIDAL NEOVASCULARIZATION [address] active 6 GASTRO-ESOPHAGEAL REFLUX DISEASE WITHOUT ESOPHAGITIS [address] active 7 HYPERLIPIDEMIA, UNSPECIFIED [address] active 8 HYPERTENSIVE HEART DISEASE WITHOUT HEART FAILURE [address] active 9 MAJOR DEPRESSIVE DISORDER, SINGLE EPISODE, IN PARTIAL REMISSION [address] active 10 NEED FOR ASSISTANCE WITH PERSONAL CARE [address] active 11 OBESITY, UNSPECIFIED 023 04/06/[address] completed 12 OBSTRUCTIVE SLEEP APNEA (ADULT) (PEDIATRIC) [address] active 13 OSTEOMYELITIS, UNSPECIFIED 023 04/06/[address] completed 14 OTHER ABNORMALITIES OF GAIT AND MOBILITY [address] active 15 OTHER ACUTE OSTEOMYELITIS, RIGHT ANKLE AND FOOT [address] active 16 OTHER COMPLICATIONS OF SKIN GRAFT (ALLOGRAFT) (AUTOGRAFT) 023 05/17/[address] completed 17 POLYNEUROPATHY, UNSPECIFIED [address] active 18 PRESENCE OF AORTOCORONARY BYPASS GRAFT [address] active 19 PYOGENIC ARTHRITIS, UNSPECIFIED [address] active 20 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 STORM [address] active 21 UNSPECIFIED ATRIAL FIBRILLATION [address] active 22 VENOUS INSUFFICIENCY (CHRONIC) (PERIPHERAL) [address] active Reason for Referral No Reasons for Referral Entered Social History Social History Observation Description Start Date End Date Code Code System Current Smoking Status Tobacco smoking consumption unknown 272145294 SNOMED CT Sex Assigned At Male 1945 92020-1 [facility] Gender Identity Vital Signs Code Code System Vitals Name Values and Units Timing Information 9279-1 [facility] Respiratory Rate Value=18.0 Units=/m in 04/27/2023 8462-4 [facility] Blood Pressure-Diastolic Value=64 Un its=mmHg 04/27/2023 8480-6 [facility] Blood Pressure-Systolic Tdaqu=744 Un its=mmHg 04/27/2023 8310-5 [facility] Body Temperature Value=97.0 Units= F 04/27/2023 8867-4 [facility] Heart rate Value=64.0 Units=/min 06/2023 34235-4 [facility] O2 % BldC Oximetry Value=97.0 Units= % 04/27/2023 33510-6 [facility] Pain Level Value=0.0 04/27/2023 26526-3 [facility] Weight Mvlch=396.6 Units=Lbs 03/2023 8302-2 [facility] Height Value=71.0 Units=Inches 04/07/2023
== END 2025-02-14 15:16 | disposition home or self-care (01) ==
LOC: NPINS 15:15
PROVIDERS: Visit Provider Family Medicine
DX: R30.0 Dysuria (principal)
CPT/HCPCS: 81001; 81003; 87086; 87186

== ENCOUNTER 2025-03-16 10:57 | Outpatient (REF) | payer MEDICARE, SELFPAY ==
[2025-03-16 11:46] LABS: Appearance Urine Cloudy (Clear)
--- OUTSIDE RECORDS SUMMARY | 2025-03-17 00:19 | XMS_ITS ---
Author Organization [facility] er Care Team Providers Care Spinning Lathe Operator Hydraulic Name Role Phone Norma Pederson Unavailable Unavailable León Garcia Unavailable Unavailable Anni Nance Unavailable Unavailable Edgar Parrish Unavailable Unavailable Small, Meghana Unavailable Unavailable Allergies and adverse reactions Code CodeSystem Substance Reaction Severity StartDate Concern Status 43781 RXNORM Vancomycin Mild 04/06/[address] Sulfa Antibiotics Mild 04/06/[address] Penicillins Moderate 04/06/2023 acti ve 7052 RXNORM Morphine Moderate 04/06/2023 active Hiprex Unknown 04/06/2023 active 9471 RXNORM Fluorescein Mild 04/06/2023 active Care Team Name Role Address Phone Organization Aditya Pederson [address] [place], [place], [facility], [place] (Office): [facility] 04/06/2023 - 04/27/2023 León Garcia [address] [place], [address], [place] (Office): [facility] 04/06/2023 - 04/27/2023 Anni Nance [address] [place], [place], [facility], [facility] (Office): [facility] 04/06/2023 - 04/27/2023 Edgar Parrish [address] , [place], [place], [facility], [place] (Office): [facility] 04/06/2023 - 04/27/2023 Meghana Wills [place], [place], [facility], [facility] (Office): [facility] 04/06/2023 - 04/27/2023 Goals Section Goals Description [...] 07/16/2023 Resident will demonstrate ad justment to retirement placement by/through next review date. Active 07/16/2023 [...] completed tuberculin skin test; unspecified formulation lotNumber: [id number] expiry: 04/30/2023 Mfg: Aplisol Given 0.1 ml Right Forearm intradermally Step 2 of Multi-step with next step required 98 CVX created date: 04/21/2023 consent date: 04/20/2023 administer ed date: 04/21/2023 Educated by Thuy Witt on 04/20/2023 TB 2 Step Mantoux Skin Test completed tuberculin skin test; unspecified formulation lotNumber: [id number] expiry: 09/26/2024 Mfg: phar pharmaceutical Given 0.1 [...] created date: 04/09/2023 administer ed date: 04/05/2021 Sweetgreen COVID Vaccine - Dose 1 completed SARS-COV-2 (COVID-19) vaccine, mRNA, spike protein, LNP, preservative free, 30 mcg/0.3mL dose 208 CVX created date: 04/09/2023 administer ed date: 09/26/2020 Pfizer COVID Vaccine - Dose 2 completed SARS-COV-2 (COVID-19) vaccine, mRNA, spike protein, LNP, preservative free, 30 mcg/0.3mL dose 208 CVX created date: 04/09/2023 administer ed date: 10/17/2020 [employer]green COVID Vaccine - Booster 2 completed SARS-COV-2 (COVID-19) vaccine, mRNA, spike protein, LNP, preservative free, 30 mcg/0.3mL dose 208 CVX created date: 04/09/2023 administer ed date: 10/10/2021 [employer]green COVID Bivalent Vaccine completed SARS-COV-2 (COVID-19) vaccine, mRNA, spike protein, LNP, bivalent, preservative free, 30 mcg/0.3 mL dose, sammie-sucrose formulation 300 CVX created date: 04/09/2023 administer ed date: 01/27/2023 [facility] COVID Bivalent Vaccine completed SARS-COV-2 (COVID-19) [...] DISORDER, RECURRENT, SEVERE WITH PSYCHOTIC SYMPTOMS [address] active 2 ANXIETY DISORDER, UNSPECIFIED [address] active 3 ATHEROSCLEROTIC HEART DISEASE OF [place] CORONARY ARTERY WITHOUT ANGINA PECTORIS [address] active 4 CHRONIC OSTEOMYELITIS WITH DRAINING SINUS, RIGHT HUMERUS 023 04/06/[address] completed 5 EXUDATIVE AGE-RELATED MACULAR DEGENERATION, BILATERAL, WITH ACTIVE CHOROIDAL NEOVASCULARIZATION [address] active 6 GASTRO-ESOPHAGEAL REFLUX DISEASE WITHOUT ESOPHAGITIS [address] active 7 HYPERLIPIDEMIA, UNSPECIFIED [address] active 8 HYPERTENSIVE HEART DISEASE WITHOUT HEART FAILURE [address] active 9 MAJOR DEPRESSIVE DISORDER, SINGLE EPISODE, IN PARTIAL REMISSION [address] active 10 NEED FOR ASSISTANCE WITH PERSONAL CARE [address] active 11 OBESITY, UNSPECIFIED 023 04/06/[address] completed 12 OBSTRUCTIVE SLEEP APNEA (ADULT) (PEDIATRIC) [address] active 13 OSTEOMYELITIS, UNSPECIFIED 023 04/06/[address] completed 14 OTHER ABNORMALITIES OF GAIT AND MOBILITY [address] active 15 OTHER ACUTE OSTEOMYELITIS, RIGHT ANKLE AND FOOT [address] active 16 OTHER COMPLICATIONS OF SKIN GRAFT (ALLOGRAFT) (AUTOGRAFT) 023 05/17/[address] completed 17 POLYNEUROPATHY, UNSPECIFIED [address] active 18 PRESENCE OF AORTOCORONARY BYPASS GRAFT [address] active 19 PYOGENIC ARTHRITIS, UNSPECIFIED [address] active 20 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 STORM [address] active 21 UNSPECIFIED ATRIAL FIBRILLATION [address] active 22 VENOUS INSUFFICIENCY (CHRONIC) (PERIPHERAL) [address] active Reason for Referral No Reasons for Referral Entered Social History Social History Observation Description Start Date End Date Code Code System Current Smoking Status Tobacco smoking consumption unknown 671591946 SNOMED CT Sex Assigned At Male 1945 14229-7 [facility] Gender Identity Vital Signs Code Code System Vitals Name Values and Units Timing Information 9279-1 [facility] Respiratory Rate Value=18.0 Units=/m in 04/27/2023 8462-4 [facility] Blood Pressure-Diastolic Value=64 Un its=mmHg 04/27/2023 8480-6 [facility] Blood Pressure-Systolic Uocvc=183 Un its=mmHg 04/27/2023 8310-5 [facility] Body Temperature Value=97.0 Units= F 04/27/2023 8867-4 [facility] Heart rate Value=64.0 Units=/min 06/2023 96801-5 [facility] O2 % BldC Oximetry Value=97.0 Units= % 04/27/2023 66388-5 [facility] Pain Level Value=0.0 04/27/2023 86282-9 [facility] Weight Wdcxt=493.6 Units=Lbs 03/2023 8302-2 [facility] Height Value=71.0 Units=Inches 04/07/2023
--- OUTSIDE RECORDS SUMMARY | 2025-03-17 00:19 | XMS_ITS ---
Author Organization [facility] ter Care Team Providers Care Aircraft Hydraulic Equipment Mechanic Name Role Phone Ly Garcia Unavailable Unavailable Mejia Coronel Unavailable Unavailable Allergies and adverse reactions Code CodeSystem Substance Reaction Severity StartDate Concern Status 789388544 SNOMED CT Sulfa Antibiotics Unknown Unknown ac tive 559674911 SNOMED CT Penicillins Unknown Unknown active 7052 RXNORM Morphine Unknown Unknown active 9471 RXNORM Fluorescein Unknown Unknown active Care Team Name Role Address Phone Organization Dates Mejia BENITEZ Genevive [address] [place] [address], [address], [place], [place], [facility], [facility] (Office): [facility] 08/17/2024 - 10/18/2024 Ly Garcia Gen[facility] [address] [facility] [address], [place], [facility], [facility] (Office): : [facility] 08/17/2024 - 10/18/2024 Immunizations Immunization Status Vaccine Details Vaccine Code CodeSystem Date Notes Prevnar 13 completed pneumococcal conjugate vaccine, 13 valent 133 CVX created date: 02/25/2019 administer ed date: 07/23/2015 Pneumovax 23 completed pneumococcal polysaccharide vaccine, 23 valent 33 CVX created date: 02/25/2019 administer ed date: 03/08/2008 QuantiFERON-TB Gold completed no vaccine administered 998 CVX created date: 03/29/2019 administer ed date: 02/28/2019 Negative; likely positive Mental Status Section Date Assessment Total Score Description 05/12/2019 BIMS 15 cognitively int act CAM 0 No delirium ind icated PHQ-9 00 04/26/2019 BIMS 15 cognitively int act CAM 0 No delirium ind icated PHQ-9 00 Problems Problem # Description Date of onset Resolved Date Code CodeSystem Concern Status 1 GENERALIZED ANXIETY DISORDER 04/13/[address] active 2 HISTORY OF FALLING 04/13/[address] active 3 MAJOR DEPRESSIVE DISORDER, SINGLE EPISODE, UNSPECIFIED 04/13/[address] active 4 OTHER INJURY OF OTHER MUSCLES, FASCIA AND TENDONS AT SHOULDER AND UPPER ARM LEVEL, LEFT ARM, SUBSEQUENT ENCOUNTER 04/13/[address] active 5 OTHER REDUCED MOBILITY 04/13/[address] active 6 PRESENCE OF AORTOCORONARY BYPASS GRAFT 04/13/[address] active 7 OTHER BURSITIS OF KNEE, RIGHT KNEE 03/11/[address] active 8 ADJUSTMENT DISORDER WITH ANXIETY 02/26/[address] active 9 ATHEROSCLEROTIC HEART DISEASE OF [place] CORONARY ARTERY WITHOUT ANGINA PECTORIS 02/26/[address] active 10 BENIGN PROSTATIC HYPERPLASIA WITH LOWER URINARY TRACT SYMPTOMS 02/26/[address] active 11 CONSTIPATION, UNSPECIFIED 02/26/[address] active 12 DEPENDENCE ON OTHER ENABLING MACHINES AND DEVICES 02/26/[address] active 13 DIFFICULTY IN WALKING, NOT ELSEWHERE CLASSIFIED 02/26/20 19 03/22/[address] completed 14 DISORDER OF THE AUTONOMIC NERVOUS SYSTEM, UNSPECIFIED 02/26/[address] active 15 ENCOUNTER FOR OTHER ORTHOPEDIC AFTERCARE 02/26/[address] active 16 ESSENTIAL (PRIMARY) HYPERTENSION 02/26/[address] active 17 EXUDATIVE AGE-RELATED MACULAR DEGENERATION, BILATERAL, STAGE UNSPECIFIED 02/26/[address] active 18 GASTRO-ESOPHAGEAL REFLUX DISEASE WITHOUT ESOPHAGITIS 02/26/[address] active 19 HYPERLIPIDEMIA, UNSPECIFIED 02/26/[address] active 20 HYPERTENSIVE HEART DISEASE WITHOUT HEART FAILURE 02/26/[address] active 21 SNF (CURRENT) USE OF ANTICOAGULANTS 02/26/[address] active 22 OBSTRUCTIVE SLEEP APNEA (ADULT) (PEDIATRIC) 02/26/[address] active 23 OTHER SPECIFIED FORMS OF TREMOR 02/26/[address] active 24 PRESSURE ULCER OF OTHER SITE, STAGE 2 02/26/20 19 03/22/[address] completed 25 UNSPECIFIED ABNORMALITIES OF GAIT AND MOBILITY 02/26/20 19 03/22/[address] completed 26 UNSPECIFIED ATRIAL FIBRILLATION 02/26/[address] active 27 UNSPECIFIED FRACTURE OF RIGHT PATELLA, SUBSEQUENT ENCOUNTER FOR CLOSED FRACTURE WITH DELAYED HEALING 02/26/[address] active Reason for Referral No Reasons for Referral Entered Social History Social History Observation Description Start Date End Date Code Code System Current Smoking Status Tobacco smoking consumption unknown 615440861 SNOMED CT Sex Assigned At Male 1945 96042-0 [facility] Gender Identity Vital Signs Code Code System Vitals Name Values and Units Timing Information 12238-0 [facility] Weight Epgev=264.2 Units=Lbs 9279-1 [facility] Respiratory Rate Value=16.0 Units=/m in 05/03/2019 8462-4 [facility] Blood Pressure-Diastolic Value=68 Un its=mmHg 05/03/2019 8480-6 [facility] Blood Pressure-Systolic Nxrkz=412 Un its=mmHg 05/03/2019 8310-5 [facility] Body Temperature Value=98.0 Units= F 05/03/2019 8867-4 [facility] Heart rate Value=74.0 Units=/min 81436-7 [facility] O2 % BldC Oximetry Value=96.0 Units= % 05/03/2019 8302-2 [facility] Height Value=71.0 Units=Inches 04/13/2019 77062-9 [facility] Pain Level Value=0.0 03/04/2019
--- OUTSIDE RECORDS SUMMARY | 2025-03-17 00:19 | XMS_ITS | Clinical Summary ---
Author Organization [facility] Address [facility] [place] [address] Care Team Providers Care Superintendent Operating Name Role Phone Chandana Antonio MD Primary [...] Department Care Team Description 12/26/2024 Lab Requisition [facility] [phone] Eden Lake MD from Last 3 Months [...] - 4.20 uIU/mL 12/27/2024 10:02 AM T [facility] Blood BLOOD SPECIMEN / Unknown Butterfly / Unknown 12/27/2024 8:50 AM CDT 12/27/2024 9:27 AM CDT [facility] - 12/27/2024 10:02 AM CDT In Adults, TSH values between 5.00 and 10.00 uIU/ml do not necessarily indicate the presence of Hypothyroidism. Correlation with clinical findings such as presence of goiter and/or Thyroperoxidase (TPO) Antibody may be helpful. For more information please refer to ELLY 2004; 291: 228-238. us Eden Lake MD CHEMISTRY Final Re sult [facility] [address] [place] [address] * (ABNORMAL) CBC W PLT NO DIFF (12/27/2024 8:50 AM CDT) WHITE BLOOD COUNT 7.1 4.5 - 11.0 thou/cu mm 12/27/2024 9:42 AM [facility] RED BLOOD COUNT 3.80(L) 4.30 - 5.90 mil/cu mm 12/27/2024 9:42 AM [facility] HEMOGLOBIN 13.8 13.5 - 17.5 g/dL 12/27/2024 9:42 AM [facility] HEMATOCRIT 40.1 37.0 - 53.0 % 12/27/2024 9:42 AM [facility] MCV 106(H) 80 - 100 fL 12/27/2024 9:42 AM [facility] MCH 36.3(H) 26.0 - 34.0 pg 12/27/2024 9:42 AM [facility] MCHC 34.4 32.0 - 36.0 g/dL 12/27/2024 9:42 AM CDT [facility] RDW 12.9 11.5 - 15.5 % 12/27/2024 9:42 AM CDT [facility] PLATELET COUNT 153 140 - 440 thou/cu mm 12/27/2024 9:42 AM CDT [facility] MPV 9.9 6.5 - 11.0 fL 12/27/2024 9:42 AM CDT [facility] Blood BLOOD SPECIMEN / Unknown Butterfly / Unknown 12/27/2024 8:50 AM CDT 12/27/2024 9:27 AM CDT us Eden Lake MD HEMATOLOGY Final Re sult [facility] [address] [place] [address] * T4,FREE (12/27/2024 8:50 AM CDT) T4,FREE 1.23 0.93 - 1.70 ng/dL 12/27/2024 11:28 PM CDT [facility] Blood BLOOD SPECIMEN / Unknown Butterfly / Unknown 12/27/2024 8:50 AM CDT 12/27/2024 9:27 AM CDT us [place] MD CHEMISTRY Final Re sult [facility] [address] [place] [id number] * HEPATIC FUNCTION PANEL (12/27/2024 8:50 AM CDT) ALBUMIN 4.3 4.0 - 4.9 g/dL 12/27/2024 10:02 AM CDT [facility] PROTEIN,TOTAL 6.6 6.0 - 8.0 g/dL 12/27/2024 10:02 AM CDT [facility] BILIRUBIN,TOTAL 0.4 0.0 - 1.2 mg/dL 12/27/2024 10:02 AM [facility] BILIRUBIN,DIRECT 0.2 0.0 - 0.2 mg/dL 12/27/2024 10:02 AM [facility] BILIRUBIN,INDIRE CT 0.2 0.2 - 0.8 mg/dL 12/27/2024 10:02 AM [facility] ALK PHOSPHATASE 86 40 - 129 IU/L 12/27/2024 10:02 AM [facility] ALT (SGPT) 17 10 - 50 IU/L 12/27/2024 10:02 AM [facility] AST (SGOT) 21 10 - 50 IU/L 12/27/2024 10:02 AM [facility] Blood BLOOD SPECIMEN / Unknown Butterfly / Unknown 12/27/2024 8:50 AM CDT 12/27/2024 9:27 AM T us [place] MD CHEMISTRY Final Re sult [facility] [address] [place] [address] * (ABNORMAL) BASIC METABOLIC PANEL (12/27/2024 8:50 AM T) SODIUM 142 136 - 145 mmol/L 12/27/2024 10:02 AM [facility] POTASSIUM 4.1 3.5 - 5.1 mmol/L 12/27/2024 10:02 AM [facility] CHLORIDE 105 98 - 107 mmol/L 12/27/2024 10:02 AM [facility] CO2,TOTAL 25 22 - 29 mmol/L 12/27/2024 10:02 AM [facility] ANION GAP 12 5 - 18 12/27/2024 10:02 AM [facility] GLUCOSE 156(H) 70 - 99 mg/dL 12/27/2024 10:02 AM [facility] CALCIUM 9.2 8.8 - 10.4 mg/dL 12/27/2024 10:02 AM CDT [facility] Comment: Reference ranges for this test were updated on 06/21/2024 to reflect our healthy population more accurately. Reference range changes are not retroactively applied to results, but previous results using the same methodology can be interpreted in the context of the new reference range. BUN 17 8 - 23 mg/dL 12/27/2024 10:02 AM [facility] CREATININE 0.81 0.70 - 1.20 mg/dL 12/27/2024 10:02 AM [facility] BUN/CREAT RATIO 21(H) 10 - 20 10:02 AM [facility] eGFR 89(L) >90 mL/min/1. 73m2 12/27/2024 10:02 AM [facility] Comment:As of 2021, eG FR [...] [place] MD CHEMISTRY Final Re sult [facility] [address] [place] [address] from Last 3 Months Insurance [facility] [place] [address] Advance Directives * DNR (Latest Code Status on File) Date Activated Date Inactivated Comments 11/02/2023 3:24 AM 11/16/2023 12:35 PM Question Answer Comments Code Status Discussion: Reviewed Preferences * Full Code Date Activated Date Inactivated Comments 11/02/2023 2:59 AM 11/02/2023 3:24 AM Question Answer Comments Code Status Discussion: Unable to Assess Preferences, Provider to review later Care Teams Superintendent Operating Relationship Specialty Start Date End Date Chandana Antonio MD [address] [place] [address] PCP - General 11/02/23
--- OUTSIDE RECORDS SUMMARY | 2025-03-17 00:19 | XMS_ITS ---
Author Organization [facility] Care Team Providers Care Video Production Intern Name Role Phone Drew Randle Unavailable Unavailable Jose Moscoso Unavailable Unavailable Anni Gee Unavai lable Unavailable Thuy Bowers (Katy) Unavailable Unavai lable Allergies and adverse reactions Code CodeSystem Substance Reaction Severity StartDate Concern Status 55951 RXNORM Vancomycin Unknown 12/12/[address] Sulfa Antibiotics Unknown 12/12/[address] Penicillins Unknown 12/12/2021 activ e 7052 RXNORM Morphine Unknown 12/12/2021 active Hiprex Unknown 12/12/2021 active 9471 RXNORM Fluorescein Unknown 12/12/2021 active Care Team Name Role Address Phone Organization Dates Drew Jer PCP [address] [place], [address], [place] (Office): [facility] 11/16/2023 - 11/24/2023 Jose Lepe [address] [place], [address], [place] [facility] (Office): [facility] 11/16/2023 - 11/24/2023 [place], [address], [place] [facility] 11/16/2023 - 11/24/2023 Thuy JustinyShwetha Bowers [address] [facility], [place], [address], [place] (Office): : [facility] 11/16/2023 - 11/24/2023 Immunizations Immunization Status Vaccine Details Vaccine Code CodeSystem Date Notes Influenza completed Influenza, high-dose, split virus, quadrivalent, injectable, preservative free 197 CVX created date: 12/16/2021 administer ed date: 05/31/2023 TB 2 Step Mantoux Skin Test completed tuberculin skin test; unspecified formulation lotNumber: [id number] expiry: 10/14/2024 Mfg: par Given 0.1 ml Left Forearm intradermally Step 1 of Multi-step with next step required 98 CVX created date: 11/17/2023 consent date: 11/16/2023 administer ed date: 11/17/2023 Step 1 TB 2 Step Mantoux Skin Test completed tuberculin skin test; unspecified formulation lotNumber: [id number] expiry: 06/17/2023 Mfg: Par [employer]aceutical Given 0.1 ml Right Forearm intradermally Step 1 of Multi-step with next step required 98 CVX created date: 12/27/2021 consent date: 12/27/2021 administer ed date: 12/27/2021 Educated by Caryl Hammond on 12/26/2021 TB 2 Step Mantoux Skin Test completed tuberculin skin test; unspecified formulation lotNumber: [id number] expiry: 06/16/2022 Mfg: Aplisol Given 0.1 ml [...] ACQUIRED ABSENCE OF OTHER RIGHT TOE(S) [address] active 2 ANXIETY DISORDER, UNSPECIFIED [address] active 3 ATHEROSCLEROSIS OF [place] [address] active 4 ATRIOVENTRICULAR BLOCK, COMPLETE [address] active 5 BENIGN PROSTATIC HYPERPLASIA WITH LOWER URINARY TRACT SYMPTOMS [address] active 6 BENIGN PROSTATIC HYPERPLASIA WITHOUT LOWER URINARY TRACT SYMPTOMS [address] active 7 ENCOUNTER FOR ADJUSTMENT AND MANAGEMENT OF OTHER PART OF CARDIAC PACEMAKER [address] active 8 EXUDATIVE AGE-RELATED MACULAR DEGENERATION, BILATERAL, WITH ACTIVE CHOROIDAL NEOVASCULARIZATION [address] active 9 HYPERTENSIVE HEART DISEASE WITHOUT HEART FAILURE [address] active 10 MAJOR DEPRESSIVE DISORDER, RECURRENT, SEVERE WITH PSYCHOTIC SYMPTOMS [address] active 11 MUSCLE WEAKNESS (GENERALIZED) [address] active 12 NUTRITIONAL ANEMIA, UNSPECIFIED [address] active 13 OBSTRUCTIVE SLEEP APNEA (ADULT) (PEDIATRIC) [address] active 14 OTHER ABNORMALITIES OF GAIT AND MOBILITY [address] active 15 OTHER OBSTRUCTIVE AND REFLUX UROPATHY [address] active 16 PERSONAL HISTORY OF COVID-[address] active 17 PRESSURE ULCER OF [place] REG[place], STAGE 2 [address] active 18 REPEATED FALLS [address] active 19 SLEEP DISORDER, UNSPECIFIED [address] active 20 THYROTOXICOSIS, UNSPECIFIED WITHOUT THYROTOXIC CRISIS OR STORM [address] active 21 UNSPECIFIED MOOD [AFFECTIVE] DISORDER [address] active 22 UNSPECIFIED PROTEIN-CALORIE MALNUTRITION [address] active 23 ATHEROSCLEROTIC HEART DISEASE OF [place] CORONARY ARTERY WITHOUT ANGINA PECTORIS 11/16/[address] completed 24 BENIGN PROSTATIC HYPERPLASIA WITH LOWER URINARY TRACT SYMPTOMS 11/16/[address] completed 25 CONSTIPATION, UNSPECIFIED 11/16/[address] completed 26 ESSENTIAL (PRIMARY) HYPERTENSION 12659636 SNOMED CT active 27 GASTRO-ESOPHAGEAL REFLUX DISEASE WITHOUT ESOPHAGITIS 211087057 SNOMED CT active 28 MELANOCYTIC NEVI, UNSPECIFIED 11/16/[address] completed 29 OTHER OBSTRUCTIVE AND REFLUX UROPATHY 11/16/[address] completed 30 PINGUECULA, BILATERAL 11/16/[address] completed 31 POLYNEUROPATHY, UNSPECIFIED 022 11/16/[address] completed 32 TREMOR, UNSPECIFIED 40784970 SNOMED CT active 33 ADULT FAILURE TO THRIVE 11/16/[address] completed 34 CELLULITIS OF LEFT LOWER LIMB 11/16/[address] completed 35 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, SUBSEQUENT ENCOUNTER 11/16/[address] completed 36 EXUDATIVE AGE-RELATED MACULAR DEGENERATION, BILATERAL, WITH ACTIVE CHOROIDAL NEOVASCULARIZATION 11/16/[address] completed 37 GENERALIZED ANXIETY DISORDER 12/13/[address] completed 38 GENERALIZED ANXIETY DISORDER 11/16/[address] completed 39 HISTORY OF FALLING 11/16/[address] completed 40 HYPERLIPIDEMIA, UNSPECIFIED [address] active 41 HYPERTENSIVE HEART DISEASE WITHOUT HEART FAILURE 11/16/[address] completed 42 MAJOR DEPRESSIVE DISORDER, SINGLE EPISODE, UNSPECIFIED 12/13/[address] completed 43 MAJOR DEPRESSIVE DISORDER, SINGLE EPISODE, UNSPECIFIED 11/16/[address] completed 44 OBESITY, UNSPECIFIED 11/16/[address] completed 45 OBSTRUCTIVE SLEEP APNEA (ADULT) (PEDIATRIC) 11/16/[address] completed 46 OLD MYOCARDIAL INFARCTION 11/16/[address] completed 47 OTHER ACUTE OSTEOMYELITIS, LEFT ANKLE AND FOOT 12/13/[address] completed 48 PRESENCE OF AORTOCORONARY BYPASS GRAFT 745598934 SNOMED CT active 49 SEROUS DETACHMENT OF RETINAL PIGMENT EPITHELIUM, BILATERAL 11/16/[address] completed 50 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 STORM 11/16/[address] completed 51 THYROTOXICOSIS, UNSPECIFIED WITHOUT THYROTOXIC CRISIS OR STORM 11/16/[address] completed 52 TINEA PEDIS 11/16/[address] completed 53 UNSPECIFIED ATRIAL FIBRILLATION 85437293 SNOMED CT active Reason for Referral No Reasons for Referral Entered Social History Social History Observation Description Start Date End Date Code Code System Current Smoking Status Tobacco smoking consumption unknown 592189153 SNOMED CT Sex Assigned At Male 1945 679[birth year]-8 [facility] Gender Identity Vital Signs Code Code System Vitals Name Values and Units Timing Information 37477-8 LOINC Weight Umrue=288.4 Units=Lbs 03/2024 54664-7 LOINC Pain Level Value=0.0 11/23/2023 9279-1 LOINC Respiratory Rate Value=18.0 Units=/m in 11/23/2023 8462-4 LOINC Blood Pressure-Diastolic Value=70 Un its=mmHg 11/23/2023 8480-6 LOINC Blood Pressure-Systolic Vueix=038 Un its=mmHg 11/23/2023 8310-5 [facility] Body Temperature Value=97.4 Units= F 11/23/2023 8867-4 [facility] Heart rate Value=54.0 Units=/min 03/2024 13825-6 [facility] O2 % BldC Oximetry Value=92.0 Units= % 11/23/2023 8302-2 [facility] Height Value=70.0 Units=Inches 11/16/2023
== END 2025-03-16 10:58 | disposition home or self-care (01) ==
LOC: NPINS 10:57
PROVIDERS: Visit Provider Nurse Practitioner Gerontology
DX: R30.0 Dysuria (principal); N39.0 Urinary tract infection, site not specified
CPT/HCPCS: 81001; 81003; 87086